=== PATIENT | male | born 1945 | race Caucasian/White ===

== ENCOUNTER 2018-08-26 20:40 | Inpatient (IN) | payer MEDICARE ==
--- NOTE | 2018-08-26 20:47 | ED ---
Altered Mental Status - HPI Summary HPI Summary: A 72 y/o M brought in by ambulance presents to ED for possible AMS per family onset approx 6-8 hours ago. Per EMS: Patient is living at rehab currently, and the family was present with patient at 1400 and felt he was altered and very lethargic. Patient was stable en route to [facility]. At bedside, patient states it s hard to pay attention and remember things. He says he hit his head mildly when he had therapy a few days ago. Denies recent falls. Associated sx: FLEMING, RLE weakness, L elbow pain. He has L-sided weakness s/p stroke in 2001. Patient denies dysuria, frequency, abd pain, SOB, CP. He is on home O2 only at night. - History Of Current Complaint Stated Complaint: AMS PER EMS Hx Obtained From: Patient, Family/Substance Abuse Therapist - son, EMS Onset/Duration: Still Present Timing: Constant, Lasting Hours Severity Initially: Mild Severity Currently: Mild Character: Lethargy Aggravating Factor(s): Unknown Associated Signs And Symptoms: Positive: Headache - Allergies/Home Medications Allergies/Adverse Reactions: Allergies Allergy/AdvReac Type Severity Reaction Status Date / Time simvastatin [From Zocor] Allergy Unknown Verified 08/26/18 21:31 Reaction Details tramadol Allergy Unknown Verified 08/26/18 21:31 Reaction Details Home Medications: Home Medications Baclofen TAB* [Lioresal TAB*] 40 mg PO QID 08/26/18 [History Confirmed 08/26/18 ] Clopidogrel Bisulfate [Plavix] 75 mg PO QAM 08/26/18 [History Confirmed 08/26/18 ] Duloxetine HCl [Cymbalta] 30 mg PO DAILY 08/26/18 [History Confirmed 08/26/18] Fluticasone NASAL SPRAY 50MCG* [Flonase NASAL SPRAY 50MCG*] 1 spray BOTH NARES DAILY 08/26/18 [History Confirmed 08/26/18] Gabapentin CAP(*) [Neurontin 400 mg CAP(*)] 1 tab PO TID 08/26/18 [History Confirmed 08/26/18] Gabapentin CAP(*) [Neurontin 400 mg CAP(*)] 4 tab PO BEDTIME 08/26/18 [History Confirmed 08/26/18] Glimepiride 4 mg PO QAM 08/26/18 [History Confirmed 08/26/18] Ketorolac 0.5% OPHTH (NF) 1 drop BOTH EYES TID 08/26/18 [History Confirmed 08/26] L. Acidophilus/L.bulgaricus [Lactobacillus Tablet] 2 each PO DAILY 08/26/18 [ History Confirmed 08/26/18] Levothyroxine Sodium 100 mcg PO QAM 08/26/18 [History Confirmed 08/26/18] Loperamide CAP* [Imodium CAP*] 2 mg PO Q4H PRN 08/26/18 [History Confirmed 08/26] Morphine TAB (NF) [Morphine 30 MG TAB (NF)] 30 mg PO Q12H PRN 08/26/18 [History Confirmed 08/26/18] Nitroglycerin 0.4 mg SL SEE INSTRUCTIONS PRN 08/26/18 [History Confirmed ] Rosuvastatin Calcium [Crestor] 5 mg PO QPM 08/26/18 [History Confirmed 08/26/18] Silver Sulfadiazine 1%* [SILVadine 1%*] 1 applic TOPICAL BEDTIME 08/26/18 [ History Confirmed 08/26/18] Warfarin Sodium [Coumadin] 4 mg PO DAILY 08/26/18 [History Confirmed 08/26/18] PMH/Surg Hx/FS Hx/Imm Hx Previously Healthy: No Musculoskeletal History: Reports: Hx Back Problems, Other Musculoskeletal History - 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 Neurological History: Reports: Hx Headaches, Other Neuro Impairments/Disorders - Stroke in 2001 - Social History Occupation: Retired Lives: At [facility] [employer] Review of Systems Negative: Chest Pain Negative: Shortness Of Breath Negative: Abdominal Pain Negative: dysuria, frequency Musculoskeletal: Other - pos: L elbow pain Positive: Headache, Weakness - RLE All Other Systems Reviewed And Are Negative: Yes Physical Exam - Summary Physical Exam Summary: Constitutional: Well-developed, Well-nourished, Alert. (-) Distressed Skin: Warm, Dry HENT: Normocephalic; Atraumatic Eyes: Conjunctiva normal Neck: Musculoskeletal ROM normal neck. (-) JVD, (-) Stridor, (-) Tracheal deviation Cardio: Rhythm regular, rate normal, Heart sounds normal; Intact distal pulses; The pedal pulses are 2+ and symmetric. Radial pulses are 2+ and symmetric. (-) Murmur Pulmonary/Chest wall: Effort normal. (-) Respiratory distress, (-) Wheezes, (-) Rales Abd: Soft, (-) tenderness, (-) Distension, (-) Guarding, (-) Rebound Musculoskeletal: Edematous Lymph: (-) Cervical adenopathy Neuro: Alert & Oriented to person and place not time. Psych: Mood and affect Normal Triage Information Reviewed: Yes Vital Signs Reviewed: Yes - [place] Neck Coma Scale Best Eye Response: 4 - Spontaneous Best Motor Response: 6 - Obeys Commands Best Verbal Response: 4 - Confused Coma Scale Total: 14 Diagnostics - Laboratory Result Diagrams: 08/26/18 21:11 08/26/18 21:11 Lab Statement: Any lab studies that have been ordered have been reviewed, and results considered in the medical decision making process. - CT Brain CT CT Interpretation Completed By: Radiologist Summary of CT Findings: IMPRESSION: No acute injury or hemorrhage or significant mass effect. ED provider has reviewed this report. C-Spine CT CT Interpretation Completed By: Radiologist Summary of CT Findings: IMPRESSION: 1. No acute findings. 2. Severe multilevel degenerative spondylosis, greatest at C3-C4 level with severe spinal stenosis and severe bilateral neural foraminal narrowing as well as ventral cord compression. Further evaluation with MRI of the cervical spine may be considered. ED provider has reviewed this report. - EKG 2102 Summary of EKG Findings: EKG at 2102 shows junctional rhythm at 72 bpm, prolonged QRS, nml QTC, RBBB. Overall RBBB and junctional rhythm. 2112 Cardiac Rate: Bradycardia - 33 bpm EKG Rhythm: Sinus Bradycardia Summary of EKG Findings: Sinus beverly at 33 bpm with 2nd degree AV block, RBBB, nml QRS, nml QTC. Significantly different from prior EKG on this date. Overall: RBBB EKG. Re-Evaluation - Re-Evaluation 1 Re-Evaluation Time: 21:00 Change: Unchanged Comment: Discussing patient with son who is now present at bedside. Son states patient fell yesterday during PT; hitting his head and L elbow. Patient was at baseline afterwards yesterday, but today was groggy and sleepy. 2 Re-Evaluation Time: 00:21 Change: Unchanged Comment: Discussing results with patient and family. , now present, is concerned about his C-spine as he has chronic c-spine problems. Altered Mental Statu Course/Dx - Course Course Of Treatment: Patient is a 72 y/o M presenting for possible AMS - lethargy per family onset approx 6-8 hours ago. Associated sx: FLEMING, RLE weakness , L elbow pain. He has L-sided weakness s/p stroke in 2001. Patient denies dysuria, frequency, abd pain, SOB, CP. He is on home O2 only at night. PE finds patient is diffusely edematous; alert & oriented to person and place but not time. Lab results show: INR: 2.43, Creatinine: 1.41, AST: 7, ALT: 6. UA results are unremarkable. Brain CT shows "No acute injury or hemorrhage or significant mass effect." C-Spine CT shows "1. No acute findings. 2. Severe multilevel degenerative spondylosis, greatest at C3-C4 level with severe spinal stenosis and severe bilateral neural foraminal narrowing as well as ventral cord compression. Further evaluation with MRI of the cervical spine may be considered.". Consulted with Dr. Lenz, hospitalist, who will admit patient. - Diagnoses Provider Diagnoses: Altered mental status, Right sided weakness - Provider Notifications Discussed Care Of Patient With: Hank Lenz - hospitalist Time Discussed With Above Provider: 03:16 Instructed by Provider To: Admit As Inpatient Discharge - Sign-Out/Discharge Documenting (check all that apply): Patient Departure - ADMIT Patient Received Moderate/Deep Sedation with Procedure: No - Discharge Plan Disposition: ADMITTED TO [facility] - Attestation Statements Document Initiated by Scribe: Yes Documenting Scribe: Miguel Barrios Provider For Whom Scribe is Documenting (Include Credential): Dr. Margy Borjas MD Scribe Attestation: I, Miguel Barrios, scribed for Dr. Margy Borjas MD on at 0641. Status of Scribe Document: Ready
[2018-08-26 21:17] LABS: ABS Basophils 0.1 10^3/ul (0-0.2); ABS Eosinophils 0.2 10^3/ul (0-0.6); ABS Lymphocytes 1.4 10^3/ul (1.0-4.8); ABS Monocytes 0.7 10^3/ul (0-0.8); ABS Neutrophils 7.4 10^3/ul (1.5-7.7); Eosinophil % 1.8 %; Hematocrit 46 % (42-52); Hemoglobin 14.8 g/dL (14.0-18.0); Lymphocyte % 14.2 %; Mean Corpuscular HGB Conc 32 g/dL (31-36); Mean Corpuscular Hemoglobin 28 pg (27-31); Mean Corpuscular Volume 86 fL (80-94); Mean Platelet Volume 7.2 fL (7.4-10.4); Platelet Count 216 10^3/uL (150-450); Red Blood Count 5.33 10^6 /uL (4.18-5.48); Red Cell Distribution Width 18 % (10-15); White Blood Count 9.8 10^3/uL (3.5-10.8)
[2018-08-26 21:25] LABS: INR 2.43 (0.82-1.09)
[2018-08-26 21:35] LABS: Albumin 3.8 g/dL (3.2-5.2); Albumin/Globulin Ratio 1.2 (1-3); BUN/Creatinine Ratio 15.6 (8-20); Calcium 8.7 mg/dL (8.6-10.3); EGFR African American 59.5 (>60); EGFR Non-African American 49.1 (>60); Globulin 3.2 g/dL (2-4); Potassium 4.4 mmol/L (3.5-5.0); Total Bilirubin 0.7 mg/dL (0.2-1.0)
[2018-08-26 23:25] LABS: Urine Appearance Clear; Urine Bilirubin Negative (Negative); Urine Blood Negative (Negative); Urine Color Yellow; Urine Glucose Negative (Negative); Urine Ketones Negative (Negative); Urine Nitrite Negative (Negative); Urine Protein Negative (Negative); Urine Specific Gravity 1.015 (1.010-1.030); Urine Urobilinogen Negative (Negative)
[2018-08-27] MEDS ORDERED: Nitroglycerin TAB 0.4 MG* 0.4 MG TAB SL PRN (03:47)
[2018-08-27] MEDS ORDERED: Morphine ORAL.SOLN 10 mg* 2 MG/ML UDC 5 ml PO PRN (03:47)
[2018-08-27] MEDS ORDERED: Loperamide CAP* 2 MG PO PRN (03:47)
[2018-08-27 08:56] LABS: INR 2.68 (0.82-1.09)
[2018-08-27] MEDS: Insulin LISPRO* 1 UNITS UNIT SUBCUT SCH ×4 (09:03→20:11)
[2018-08-27 09:47] LABS: TSH (Thyroid Stimulating Horm) 2.57 mcIU/mL (0.34-5.60)
[2018-08-27] MEDS: Clopidogrel TAB* 75 MG PO SCH (09:47)
[2018-08-27] MEDS: Baclofen TAB* 20 MG PO SCH ×4 (09:47→21:38)
[2018-08-27] MEDS: CMCS:Glimepiride (NF) 2 MG TAB PO SCH (09:47)
[2018-08-27] MEDS: Lactobacillus Acidophilus* 1 TAB PO SCH (09:47)
[2018-08-27] MEDS: DULoxetine DR CAP* 30 MG CAP.DR PO SCH (09:48)
[2018-08-27] MEDS: Gabapentin CAP(*) 400 MG PO SCH ×3 (09:48→21:38)
[2018-08-27] MEDS: CMCS:Ketorolac 0.5% OPHTH (NF) 0.5 % 5 ML BTL BOTH EYES SCH ×3 (09:49→21:38)
--- NOTE | 2018-08-27 11:13 | HP ---
CC: Dr. Vishnu Pollack at [facility] ADMISSION HISTORY AND PHYSICAL: DATE OF ADMISSION: 08/27/18 CHIEF COMPLAINT: Somnolence. HISTORY OF PRESENT ILLNESS: Mr. Can is a 72-year-old man with history of diabetes who was brought to the emergency room from [facility] today with complaint of increased somnolence. The patient could not given any history, but history was obtained by the ER doctor, from the patient's as well as from the senior care records. It sounds like the patient had the problem with the Juan lift transfer 2 days prior to admission where he was being moved from bed to chair with physical therapy and his head was bumped and he had a controlled descent to the floor without any immediate injury. He also over the last 2 days has had increasing somnolence where normally he is talkative and interactive and he has been increasingly sleeping all the time. It should be noted that the patient is chronically on CPAP when asleep and this has not been stopped. The patient's really was concerned that the patient' s right arm is moving less than previous. The patient has a left-sided hemiparesis that the patient attributes to an old stroke, but the attributes to spinal injuries. Records from the nursing speak of general muscle weakness and no specific laterality or causation. The patient denies any pain. He can answer some yes or no questions, but really is mostly giving nonsensical answers to questions. PAST MEDICAL HISTORY: Hypertension, chronic pain, obstructive sleep apnea on BiPAP, diastolic CHF, type 2 diabetes with peripheral neuropathy, major depressive disorder, hypothyroidism, atrial fibrillation, coronary artery disease, recurrent diarrhea. PAST SURGICAL HISTORY: Unknown. MEDICATIONS ON ADMISSION: 1. Baclofen 40 mg p.o. q.i.d. 2. Plavix 75 mg p.o. q.a.m. 3. Cymbalta 30 mg p.o. q. day. 4. Flonase nasal spray 1 spray both nostrils q. day. 5. Gabapentin 400 mg p.o. t.i.d. 6. Glimepiride 4 mg p.o. q.a.m. 7. Ketorolac ophthalmic drops 1 drop to both eyes daily. 8. Probiotic 2 tabs daily. 9. Levothyroxine 100 mcg p.o. q.a.m. 10. Loperamide 2 mg p.o. q.4 hours p.r.n. diarrhea. 11. Morphine sulfate SR 30 mg p.o. q.12 hours. 12. Nitroglycerin 0.4 mg sublingual q.5 minutes p.r.n. chest pain. 13. Crestor 5 mg p.o. q.p.m. 14. Silver sulfadiazine topically as needed. 15. Warfarin 4 mg p.o. q. day. ALLERGIES: SIMVASTATIN, TRAMADOL. SOCIAL HISTORY: He is . He was disabled, retired. Smoking history is unknown. FAMILY HISTORY: Not obtainable from this patient who is nearly obtunded. REVIEW OF SYSTEMS: Not obtainable from this patient. PHYSICAL EXAMINATION GENERAL: The patient is an obese man, lying in bed on CPAP. When the CPAP is taken off, the oropharynx is moist. No lesions. VITAL SIGNS: Temperature 36.7, pulse has ranged from 39 to 65, respirations are 11 to 19, blood pressures 128/69, O2 sat 92 to 95% on CPAP and drops to 89% off CPAP. HEENT: Normal. Extraocular muscles are intact. NECK: No JVD. No carotid bruit. No thyromegaly is noted. LUNGS: Diminished, clear bilaterally. HEART: Regular rate and rhythm, no murmurs appreciated. ABDOMEN: Obese, soft, nontender. Positive bowel sounds. No hepatosplenomegaly. EXTREMITIES: There is 1+ peripheral edema bilaterally. Dorsalis pedis pulses are 1+ bilaterally. NEUROLOGIC: There is no facial asymmetry, but the patient does not move left arm or left leg against gravity to command. When left leg is manipulated, he reports some pain. He appears flaccid on the left side. The right arm, he moved to command. I cannot assess strength because the patient is not cooperative, he would not move his right leg. Deep tendon reflexes absent throughout. DIAGNOSTIC STUDIES/LAB DATA: Sodium 136, potassium 4.4, chloride 101, bicarb 29, BUN 22, creatinine 1.41, glucose is 84, lactic acid 1.0. White count is 9.8 , hemoglobin 14.8, hematocrit 46%, platelets are 216. INR is 2.43. Blood gas shows pH 7.33, pCO2 of 58, pO2 of 81. Urinalysis is negative. Head CT shows atrophy. No old or new infarcts or bleed. CT of C-spine shows multilevel disc disease and foraminal narrowing. No clear cord compression. EKG shows atrial fibrillation. EKG shows regular rhythm with wide complex, right bundle-branch, left anterior fascicular block. No P-waves are discerned, but it looks regular. ASSESSMENT AND PLAN: A 72-year-old man presenting to ER with increased somnolence and possible weakness of the right arm. Arm weakness. The differential would include a stroke in the last 24 to 48 hours as well as cervical stenosis or foraminal issues that are worsening arm strength in the setting of recent mild fall. The patient will be admitted to observation and have MRI of the brain and the cervical spine, hopefully in the morning. It is not clear to me what we would be able to do other than physical therapy for the above mentioned injuries but this would help with prognosis and planning. Given the possibility of stroke, patient will be monitored on telemetry to assess for significant arrhythmias. The patient's somnolence has been partially worked up in the ER. There is no apparent urinary tract infection. The blood gas shows mild respiratory acidosis , which appears to be acute on chronic. He should be maintained on CPAP when asleep and that should help with his respiratory acidosis. He appears to have obesity hypoventilation syndrome and chronic hypercapnic respiratory failure. I will order TSH and ammonia to assess for other causes of somnolence. Medication side effects would be in the differential as well and we could try cutting back on his baclofen. For his type 2 diabetes, we will continue on glimepiride and give him sliding scale insulin as needed. For his atrial fibrillation, which appears paroxysmal, he will be continued on warfarin with INRs checked daily. DVT prophylaxis. He is on warfarin and should not need any further DVT prophylaxis. [id number]/[facility] #: [id number] [facility] HOSPITALPinky
[2018-08-27] MEDS ORDERED: Perflutren Lipid Microsphere* 3 ML VIAL ONE (11:56)
[2018-08-27] MEDS: Levothyroxine TAB* 100 MCG TAB PO SCH (12:21)
[2018-08-27] MEDS ORDERED: oxyCODONE TAB* 5 MG TAB PO ONE (13:30)
--- NOTE | 2018-08-27 13:33 | ECHO ---
*[facility]* [place] [address] Fax #: [phone] Patient: Luis Can : 1945 Study Date: 08/27/2018 Age: 72 Gender: M HR: 59 bpm Height: 72 in /182.9 cm Weight: 379.2 lb /172.4 kg BMI/BSA: 51.5 kg/m^2 2.8 m^2 HR: 59 bpm *Insole Tacker: * Krystin Johns [facility] *Referring Physician: * Wasihngton Randhawa *Reading Physician: * Rachel Garzon MD Indications: Abnormal EKG. History: Cerebrovascular accident. Risk factors: Morbidly obese. Conclusions Summary: 1. Procedure narrative: Image quality was suboptimal. 2. Left ventricle: Systolic function is mildly to moderately reduced. The estimated ejection fraction is 45-50%. Hypokinesis and dyskinesis of the septum. 3. Right ventricle: The cavity size is moderately dilated. Systolic function is moderately reduced. 4. Right atrium: The atrium is moderately to severely dilated. 5. Mitral valve: There is trace to mild regurgitation. 6. Aortic valve: Thickening, consistent with sclerosis. There is trace to mild regurgitation. 7. Tricuspid valve: There is moderate regurgitation. 8. Aorta: The ascending aorta internal dimension in the A-P direction, maximal systolic dimension is 4.0 cm. 9. Aortic root: The aortic root is moderately dilated. 10. Pulmonary arteries: The peak pressure during systole by Doppler is 39.0 mm Hg. 11. Compared with prior echocardiogram of October 2014 [facility], prior ejection fraction 50-55%, right ventricle hypokinesis has progressed and right ventricle dilatation has progressed.Valvular function is stable. No pulmonary artery pressure previousy reported. I don't have aorta measurements available to compare. Study data: Procedure: Transthoracic echocardiography was performed. Image quality was suboptimal. The study was technically limited due to poor acoustic window availability and body habitus. Intravenous Definity , 5 mlswas administered. Complete 2D, spectral Doppler, and color flow Doppler. Location: Bedside. Patient status: Inpatient. Patient room number: 437. Rhythm: Heart block. Findings Left ventricle: The cavity size is at the upper limits of normal. There is mild asymmetric hypertrophy of the septum. Systolic function is mildly to moderately reduced. The estimated ejection fraction is 45-50%. Mild diffuse hypokinesis. Regional wall motion abnormalities: Hypokinesis. Hypokinesis and dyskinesis of the septum. Left ventricular diastolic function parameters are indeterminate. Right ventricle: The cavity size is moderately dilated. Systolic function is moderately reduced. Systolic pressure is mildly to moderately increased. Ventricular septum: There is septal flattening of the interventricular septum consistent with RV volume or pressure overload. Left atrium: The atrium is mildly dilated. Right atrium: The atrium is moderately to severely dilated. Mitral valve: The leaflets are mildly thickened. There is no evidence of stenosis. There is trace to mild regurgitation. Aortic valve: The valve is trileaflet. The leaflets are mildly thickened. Thickening, consistent with sclerosis. There is no evidence of stenosis. There is trace to mild regurgitation. Tricuspid valve: The leaflets are normal thickness. There is no evidence of stenosis. There is moderate regurgitation. Pulmonic valve: The leaflets are normal thickness. There is no evidence of stenosis. There is trace regurgitation. Aorta: Aortic root: The aortic root is moderately dilated. Aortic arch: The aortic arch is appears normal. Pericardium: A prominent pericardial fat pad is present. There is no significant pericardial effusion. Pulmonary arteries: The main pulmonary artery is normal-sized. Systemic veins: Inferior vena cava: The vessel is dilated. The respirophasic diameter changes are blunted (< 50%). Measurements Left ventricle Value Ref Aortic valve Value Ref NYASIA, LAX 5.7 cm 4.2 - 5.8 Miguel diam, ED 2.7 cm ----- ESD, LAX (H) 4.9 cm 2.5 - 4.0 Peak v, S 1.47 m/sec ----- FS, LAX (L) 14 % 25 - 43 VTI, S 27.5 cm ----- PW, ED, LAX 1.0 cm 0.6 - 1.0 Mean grad, S 4.0 mm Hg ----- FS (L) 14 % 25 - 43 Peak grad, S 9.0 mm Hg ----- PW, ED 1.0 cm 0.6 - 1.0 LVOT/AV, VTI ratio 0.58 ----- E', lat miguel, TDI 13.7 cm/sec >=10.0 MELY, VTI 2.63 cm^2 --- -- E/e', lat miguel, 5 MELY, Vmax 2.43 cm^2 ----- TDI E', med miguel, TDI 7.6 cm/sec >=7.0 Mitral valve Value Ref E/e', med miguel, 8 Peak E 0.64 m/sec ----- TDI Peak A 0.42 m/sec ----- E', avg, TDI 10.7 cm/sec Decel time 257 ms ----- E/e', avg, TDI 6 <=14 Peak E/A ratio 1.5 --- -- LVOT Value Ref Pulmonic valve Value Ref Diam, S 2.40 cm Peak v, S 0.86 m/sec ----- Area 4.5 cm^2 Peak grad, S 3.0 mm Hg ----- Peak [place], S 0.79 m/sec VTI, S 16.0 cm Tricuspid valve Value Ref Mean grad, S 1 mm Hg TR peak v 2.6 m/sec <=2.8 SV 73 ml Peak RV-RA grad, S 27 mm Hg ----- SV/bsa 26 ml/m^2 Aortic root Value Ref Ventricular septum Value Ref Root diam 4.2 cm <4.7 IVS, ED (H) 1.3 cm 0.6 - 1.0 Ascending aorta Value Ref Right ventricle Value Ref AAo AP diam, S 4.0 cm ----- NYASIA, LAX 4.4 cm NYASIA minor ax, A4C (H) 5.5 cm 1.9 - 3.5 Aortic arch Value Ref mid Arch diam 2.7 cm ----- Pressure, S 42 mm Hg Decending aorta Value Ref Left atrium Value Ref Duncan peak [place] 0.51 m/sec ----- AP dim, ES (H) 4.40 cm 3.00 - 4.00 Pulmonary artery Value Ref ML dim, A4C 5.1 cm Pressure, S 39.0 mm Hg ----- SI dim, A4C 6.5 cm Vol/bsa, ES, 1-p 26 ml/m^2 12 - 37 Inferior vena cava Value Ref A4C Diam 2.8 cm ----- Vol/bsa, ES, A/L (H) 39 ml/m^2 16 - 34 Right atrium Value Ref SI dim, ES (H) 6.6 cm 3.4 - 5.3 ML dim, ES, A4C (H) 5.5 cm 2.6 - 4.4 SI dim, ES, A4C (H) 6.6 cm 3.4 - 5.3 Estimated RAP 15 mm Hg Legend: (L) and (H) shandra values outside specified reference range. Prepared and electronically signed by Rachel Garzon MD 08/27/2018 13:33
--- NOTE | 2018-08-27 13:45 | PN ---
Subjective Date of Service: 08/27/18 Interval History: Seen this AM. Confused, wanted to be transferred to [place] for "my heart" Seen again this afternoon and now mental status back to baseline per patient and /son who were present at bedside. Now appreciative of care and no longer requesting transfer. Notes back pain that is chronic but increased since his fall 2 d [employer]DER [employer] that is diffuse Denies CP, SOB, N/V, LH Objective Active Medications: Atorvastatin Calcium (Lipitor*) 10 mg PO QPM [facility]; Protocol Baclofen (Lioresal Tab*) 40 mg PO QID [facility] Last Admin: 08/27/18 09:47 Dose: 40 mg Clopidogrel Bisulfate (Plavix Tab*) 75 mg PO QAM [facility] Last Admin: 08/27/18 09:47 Dose: 75 mg Dextrose (D50w Syringe 50 Ml*) 12.5 gm IV PUSH .FOR FS < 60 - SS PRN PRN Reason: FS < 60 Duloxetine HCl (Cymbalta Cap*) 30 mg PO DAILY [facility] Last Admin: 08/27/18 09:48 Dose: 30 mg Gabapentin (Neurontin Cap(*)) 400 mg PO TID [facility] Last Admin: 08/27/18 09:48 Dose: 400 mg Glimepiride (Glimepiride (Nf)) 4 mg PO DAILY WITH MEAL [facility] Last Admin: 08/27/18 09:47 Dose: 4 mg Insulin Human Lispro (Humalog*) 0 units SUBCUT ACHS [facility]; Protocol Last Admin: 08/27/18 12:20 Dose: Not Given Ketorolac Tromethamine (Ketorolac 0.5% Ophth (Nf)) 1 drop BOTH EYES TID [facility] Last Admin: 08/27/18 09:49 Dose: 1 drop Lactobacillus Rhamnosus (Lactobacillus Acidophilus*) 2 tab PO DAILY [facility] Last Admin: 08/27/18 09:47 Dose: 2 tab Levothyroxine Sodium (Synthroid Tab*) 100 mcg PO QAM@0600 [facility] Last Admin: 08/27/18 12:21 Dose: Not Given Loperamide HCl (Imodium Cap*) 2 mg PO Q4H PRN PRN Reason: DIARRHEA Morphine Sulfate (Morphine Oral.Soln 10 Mg*) 30 mg PO Q12H PRN PRN Reason: PAIN Nitroglycerin (Nitroglycerin Tab 0.4 Mg*) 0.4 mg SL Q5M PRN PRN Reason: chest pain Silver Sulfadiazine (Silvadine 1%*) 1 applic TOPICAL BEDTIME [facility] Warfarin Sodium (Coumadin Tab(*)) 4 mg PO DAILY@1700 [facility]; Protocol Vital Signs - 8 hr 08/27/18 08/27/18 08/27/18 05:45 06:00 06:03 Temperature 98.4 F Pulse Rate 73 71 74 Respiratory 13 14 13 Rate Blood Pressure 134/76 134/76 (mmHg) O2 Sat by Pulse 94 93 94 Oximetry 08/27/18 08/27/18 08/27/18 06:15 06:30 06:32 Temperature 98.6 F 98.4 F Pulse Rate 74 74 68 Respiratory 13 15 20 Rate Blood Pressure 134/76 123/70 (mmHg) O2 Sat by Pulse 94 95 95 Oximetry 08/27/18 08/27/18 09:48 11:18 Temperature 98.1 F Pulse Rate 33 Respiratory 16 16 Rate Blood Pressure 104/41 (mmHg) O2 Sat by Pulse 95 Oximetry Oxygen Devices in Use Now: Nasal Cannula Appearance: obese, sitting up, NAD Eyes: No Scleral Icterus Ears/Nose/Mouth/Throat: NL Teeth, Lips, Gums, Clear Oropharnyx Neck: NL Appearance and Movements; NL JVP, Trachea Midline Respiratory: Symmetrical Chest Expansion and Respiratory Effort, Clear to Auscultation Cardiovascular: RRR Abdominal: NL Sounds; No Tenderness; No Distention, No Hepatosplenomegaly Extremities: - - 2+ edema in feet non pitting extending up to knees Neurological: Alert and Oriented x 3, - - lef6t sided weakness arm and leg (old ) 2-3/5, right UE 3/5 (new), CN 2-12 intact, R and L LE 1/5 Result Diagrams: 08/26/18 21:11 08/26/18 21:11 Microbiology and Other Data: Microbiology 08/27/18 04:22 Nasal Screen MRSA (PCR) - Final Nasal Mrsa Not Detected Assess/Plan/Problems-Billing Assessment: 72 yo M h/o chronic PEs, afib on coumadin, CAD/CABG, CVA, DM2, PETRA on BiPAP suffered controlled fall with PT at [place] 2 days [employer] with subsequent increased confusion and lethargy then right UE weakness found in hospital with newly identified mobitz I HB - Patient Problems (1) Heart block Comment: prasanna kendall I appreciate cardiology c/s check TTE maintain tele, wait for official c/s hold all AV yoanna blocking agents (none on outpatient or o/p cards med rec) Of note, fall at [place] was while working with PT and reportedly related to positioning not an episode of LH or LOC (2) Weakness Comment: new RUE weakness h/o stroke, concern for new CVA MRI brain pending pain medications to assist in ability to lie flat If new CVA with c/s neuro but unclear what additional changes can be made - on coumadin and plavix already (3) Altered mental status Comment: confirms that [place] told her pt received additional doses of morphine after fall on Saturday. After this increased lethargy. Suspect iotrogenic narcotic overdose Trial oxycodone now x [address] of morphine - will d/c morphine if effective, otherwise cautious and monitored trial of morphine PO Mental status cleared with time and CPAP (4) Atrial fibrillation Comment: coumadin (5) Chronic pulmonary embolism Comment: coumadin as above (6) PETRA (obstructive sleep apnea) Comment: CPAP (7) DVT prophylaxis Comment: coumadin
[2018-08-27] MEDS ORDERED: Morphine INJ* 2 MG/ML 1 ML SYRINGE (TWO MG - NEW SYRINGE VERSION) IV PRN (15:30)
[2018-08-27] MEDS ORDERED: Warfarin TAB(*) 4 MG PO SCH (17:00)
[2018-08-27] MEDS: Atorvastatin* 10 MG TAB PO SCH (19:01)
[2018-08-27] MEDS: Silver Sulfadiazine 1%* 20 GM TOPICAL SCH (21:37)
--- NOTE | 2018-08-28 02:11 | CONS ---
CC: Dr. Tera Quintero, conche loader and unloader at [facility]; Physician at [facility] in [place], [place] (Dr. Vishnu Pollack); hospitalist. * CARDIOLOGY CONSULTATION: DATE OF CONSULT: 08/27/18 REASON FOR CONSULT: Bradycardia. HISTORY OF PRESENT ILLNESS: Mr. Can was examined in the presence of his . The patient was in his usual state of health until a few days ago. He is a long term resident for several years due to left-sided weakness after a fall. He slid out of his wheelchair about 3 days ago. Details on the history are unclear from the patient, but based on admission note the incident occurred while being transferred using a Juan lift. After this incident, the patient has been having increasing somnolence and right - sided upper extremity weakness. The patient's lives in [place] but talks to her on FaceTime and states she was talking to him and he was slurring his speech and she was worried about a stroke and wanted him to come to our facility. In the emergency room, he was unable to give any history about the event itself. The patient states he has been unable to feed himself with the right hand as he was able to do prior to this event. In the emergency room and on the floor on the monitor, the patient had a second - degree heart block, type I with a long first-degree AV block, left anterior fascicular block, and right bundle branch block and were concerned that bradycardic events could be contributing to his current presentation. The patient denies dizziness. He is extremely vague as about what happened with the events with the Juan lift. PAST MEDICAL HISTORY: The patient has a past medical history of: 1. Coronary artery disease, remote bypass. 2. History of accelerated junctional rhythm. 3. History of first-degree heart block and a history of second-degree heart block, type 1. 4. Pulmonary emboli, on chronic anticoagulation. 5. Dyslipidemia. 6. Coagulopathy. 7. Congestive heart failure. 8. Morbid obesity. 9. Type 2 diabetes. 10. Hypertension. 11. Sleep apnea. 12. Hypothyroid disease. 13. Depression. 14. Cervical stenosis. 15. Paroxysmal AFib. 16. Recurrent diarrhea. 17. History of lymphedema. OUTPATIENT MEDICATIONS: Include: 1. Baclofen 40 mg q.i.d. 2. Plavix 75 mg a day. 3. Cymbalta 30 mg a day. 4. Flonase. 5. Neurontin 400 mg t.i.d. 6. Glimepiride 4 mg a day. 7. Ketorolac ophthalmic drops 1 drop daily. 8. Probiotic. 9. Levothyroxine 100 mcg a day. 10. Loperamide p.r.n. 12. Morphine sulfate SR 30 mg q.12 hours. 13. Nitroglycerin p.r.n. 14. Crestor 5 mg a day. 15. Sulfasalazine topically. 16. Coumadin 4 mg a day. ALLERGIES: Include SIMVASTATIN, TRAMADOL, CODEINE PHOSPHATE. FAMILY HISTORY: Not obtained. Positive for cancer from his father. Positive for coronary artery disease in brothers. No coronary history with the mother. SOCIAL HISTORY: The patient is with a supportive , 2 sons, disabled. He smoked in the past. REVIEW OF SYSTEMS: The patient denies chest pain, pressure heaviness, any new shortness of breath. No recent fevers, chills, sweats, change in bowel or bladder habits. He denies being constipated. No recent coughing. All other 11 -point review of systems was negative. PHYSICAL EXAM: On exam, the patient is 6 feet, weighs 180 pounds, with BMI of 51.5. Vitals: Blood pressure 138/57, respiratory rate is 20, and oxygen saturations is 94% on room air, heart rate ranging 25 to 70 beats a minute, depending on degree of heart block. He is afebrile. General Appearance: Very obese gentleman, lying in bed at 60 degrees. The nurse in front of him and his feeding him. Psychologically, pleasant and cooperative, awake, alert, oriented to person and place. I did not check for time. Did not move right upper extremity and full neurological exam not performed. Skin: Warm and dry without appreciable cyanosis or rashes. Did not fully examine. HEENT: Mucous membrane moist. Neck: Very thick without appreciable increase in JVP. No carotid bruits heard. Breath sounds unable to listen to completely posteriorly but laterally and anteriorly no appreciable wheezes, rales, or rhonchi. Coronary, also obesity. S1, S2, regularly irregular without murmurs or rubs. Abdomen: Very overweight, active bowel sounds, soft, and nontender. Lower extremities show thick and chronic edema with mild pitting component. DIAGNOSTIC STUDIES/LAB DATA: A 12 lead ECG several done here, one was interpreted as a junctional rhythm, but I think is in fact sinus rhythm with P waves buried in the T and a long first-degree AV block with one-to-one conduction, right bundle branch block, left anterior fascicular block, and biphasic Ts, V3, V4, and V5. Other EKGs and rhythm strips confirm his long first-degree AV block with intermittent second-degree heart block type 1, and intermittent 2:1 heart block. When compared with EKGs from [facility] 07/23/17, there is no appreciable change. Rhythm strips have however shown rare episodes of 2 dropped beats suggestive of Infra-Hisian block. Echocardiogram done today showed some septal dyssynchrony and hypokinesis with an ejection fraction of 45% to 50%. The right ventricle was moderately dilated and moderately hypokinetic. The right atrium is severely dilated with moderate tricuspid insufficiency and PA pressure estimated at 39 mmHg. Aorta was mild-to- moderately dilated at 4 cm (difficult study due to body habitus). White count 9.8, hematocrit 46, platelets 216. INR 2.43 on 08/26 and 2.68 today. ABG showed pH of 7.33, pCO2 of 58. Sodium 136, potassium 4.4, chloride 101, bicarb 29, BUN 22, creatinine 1.4, glucose 84. Normal transaminases. Troponin 0.00. TSH 2.57. Urinalysis unremarkable. No evidence of infection. PH 1.015. Brain CT was negative. Cervical spine CT from 08/27/18 showed severe multilevel degenerative spondylolisthesis, greatest at C3-4 level with severe spinal stenosis and severe bilateral neuroforaminal narrowing as well as ventral cord compression. IMPRESSION: In summary, Luis Can is a 72-year-old gentleman with distant bypass surgery, history of a first-degree AV block and second-degree heart block type 1, documented in 2018, who is a long term resident due to left- sided weakness post fall. The patient now presents after a Juan lift accident with right-sided weakness, lethargy, somnolence and concern on the 's part about stroke. With respect to the patient's somnolence, in reviewing the MAR from the long term, the patient had not been on morphine from 08/02/18 through 08/18/18, but starting 08/19/18, he was receiving morphine twice a day until the . I think it is likely that the morphine led to depressed mentation and increased CO2 retention, but there is an additional extensive differential in this patient. Regarding the patient's bradycardia, the patient is clearly at risk for higher- degree heart block than we are seeing here and it possible that his longstanding trifascicular block has progressed to the point of being symptomatic. I don't think the bradycardia is related to a fall/mishap with a Juan lift. I don't have clear evidence it contributed to his mentation changes and the ABG suggests CO2 narcosis and his mentation improved here w/in a few hours in the setting of frequent 2:1 block. The one strip showing 2 dropped beats gives the patient indication for a dual chamber pacemaker. I am not suspicious that the symptomatic bradycardia is what brought the patient in as above. If a pacemaker is implanted, he will need ventricular pacing 100% of the time due to his very long first-degree AV block. This brings the issue up whether we should RV pace. I think we should try to avoid apical pacing, even septal pacing will not guarantee that his ejection fraction will not drip with a 100% V -pacing. There is a relative indication for a Bi-V device, but not absolute as his ejection fraction is only mildly decreased. Other issue is the evidence of RV dysfunction, probably cor pulmonale related to history of PEs, pulmonary hypertension, and obstructive sleep apnea. This will put the patient at risk for right-sided volume overload and hypotension if dehydrated. For now management will include supportive care of left heart failure and pulmonary issues. For now, we will hold his Coumadin when INR drops below 2. We can bridge him with Lovenox or unfractionated heparin drip. We will coordinate with his regular conche loader and unloader, Dr. Quintero regarding his preference for approach on pacemaker. We will need anesthesia assistance to safely implant a pacemaker in this [place] gentleman. For the patient's spinal stenosis, as per hospitalist this could be the contributing or the sole etiology of new right-sided weakness in addition to his left-sided weakness but MRI is pending (to be done tonight). Further recommendations will be made pending coordination with Dr. Quintero and his response to ongoing medical management. The patient is overall a very risk patient due to multiple health problems/ comorbidities. ADDENDUM: I REVIEWED THE ABOVE ISSUES WITH THE PATIENT'S [facility] PHARMAC[employer] TECHNICIAN CURT QUINTERO. LONGSTANDING LONG 1ST DEGREE AVB AND [place]. NO ACUTE RHYTHM INTERVENTION RECOMMENDED, HE WILL SEE IN F/U, POSSIBLE IMPLANTED EM OR PACER NON URGENTLY. LS. [id number]/CPS #: [id number] YANET
[2018-08-28] MEDS: Levothyroxine TAB* 100 MCG TAB PO SCH (05:37)
[2018-08-28 05:46] LABS: Urine Appearance Cloudy; Urine Bacteria Absent (Absent); Urine Bilirubin Negative (Negative); Urine Blood 2+ (Negative); Urine Color Yellow; Urine Glucose Negative (Negative); Urine Ketones Negative (Negative); Urine Nitrite Negative (Negative); Urine Protein 1+(30 mg/dL) (Negative); Urine Red Blood Cell 2+(6-10/hpf) (Absent); Urine Specific Gravity 1.014 (1.010-1.030); Urine Urobilinogen Positive (Negative); Urine White Blood Cell 3+(>20/hpf) (Absent)
[2018-08-28 06:18] LABS: INR 2.74 (0.82-1.09)
[2018-08-28] MEDS: Insulin LISPRO* 1 UNITS UNIT SUBCUT SCH ×3 (08:06→16:59)
[2018-08-28] MEDS: Baclofen TAB* 20 MG PO SCH ×4 (08:10→21:54)
[2018-08-28] MEDS: DULoxetine DR CAP* 30 MG CAP.DR PO SCH (08:10)
[2018-08-28] MEDS: Gabapentin CAP(*) 400 MG PO SCH ×3 (08:10→21:53)
[2018-08-28] MEDS: Lactobacillus Acidophilus* 1 TAB PO SCH (08:10)
[2018-08-28] MEDS: Clopidogrel TAB* 75 MG PO SCH (08:12)
[2018-08-28] MEDS: oxyCODONE TAB* 5 MG TAB PO PRN ×2 (08:12→23:43)
[2018-08-28] MEDS: CMCS:Ketorolac 0.5% OPHTH (NF) 0.5 % 5 ML BTL BOTH EYES SCH ×3 (08:16→21:52)
[2018-08-28] MEDS: CMCS:Glimepiride (NF) 2 MG TAB PO SCH (08:20)
[2018-08-28] MEDS: Dextrose 50% Syringe 50 ML* 25 GM/50 ML SYRINGE IV PUSH PRN ×2 (12:02→15:30)
[2018-08-28] MEDS ORDERED: NS 0.9% 1000 ML** 1,000 ML IV ONE ×2 (15:30→18:28)
[2018-08-28] MEDS ORDERED: D10W 1000 ML BAG* 1,000 ML IV SCH ×3 (16:00→18:19)
[2018-08-28] MEDS ORDERED: Dextrose 50% Syringe 50 ML* 25 GM/50 ML SYRINGE IV PUSH PRN (16:14)
--- NOTE | 2018-08-28 16:57 | PN ---
Subjective Date of Service: 08/28/18 Interval History: Low blood sugar this AM and again this afternoon Back pain better today (resolved) Increased right arm swelling noted by Right arm strength improved on self report Discussed with MRI - patient too wide to fit in scanner and did not get MRIs yesterday Objective Active Medications: Atorvastatin Calcium (Lipitor*) 10 mg PO QPM [facility]; Protocol Last Admin: 08/27/18 19:01 Dose: 10 mg Baclofen (Lioresal Tab*) 40 mg PO QID [facility] Last Admin: 08/28/18 14:14 Dose: 40 mg Clopidogrel Bisulfate (Plavix Tab*) 75 mg PO QAM [facility] Last Admin: 08/28/18 08:12 Dose: 75 mg Dextrose (D50w Syringe 50 Ml*) 25 gm IV PUSH ONCE PRN PRN Reason: FS < 60 Last Admin: 08/28/18 16:19 Dose: 25 gm Duloxetine HCl (Cymbalta Cap*) 30 mg PO DAILY [facility] Last Admin: 08/28/18 08:10 Dose: 30 mg Gabapentin (Neurontin Cap(*)) 400 mg PO TID [facility] Last Admin: 08/28/18 14:14 Dose: 400 mg Dextrose (D10w 1000 Ml Bag*) 1,000 mls @ 50 mls/hr IV PER RATE [facility] Insulin Human Lispro (Humalog*) 0 units SUBCUT ACHS [facility]; Protocol Last Admin: 08/28/18 14:06 Dose: Not Given Ketorolac Tromethamine (Ketorolac 0.5% Ophth (Nf)) 1 drop BOTH EYES TID [facility] Last Admin: 08/28/18 14:13 Dose: 1 drop Lactobacillus Rhamnosus (Lactobacillus Acidophilus*) 2 tab PO DAILY [facility] Last Admin: 08/28/18 08:10 Dose: 2 tab Levothyroxine Sodium (Synthroid Tab*) 100 mcg PO QAM@0600 [facility] Last Admin: 08/28/18 05:37 Dose: 100 mcg Loperamide HCl (Imodium Cap*) 2 mg PO Q4H PRN PRN Reason: DIARRHEA Nitroglycerin (Nitroglycerin Tab 0.4 Mg*) 0.4 mg SL Q5M PRN PRN Reason: chest pain Oxycodone HCl (Roxycodone Tab*) 10 mg PO Q6H PRN PRN Reason: PAIN Last Admin: 08/28/18 08:12 Dose: 10 mg Silver Sulfadiazine (Silvadine 1%*) 1 applic TOPICAL BEDTIME [facility] Last Admin: 08/27/18 21:37 Dose: 1 applic Vital Signs - 8 hr 08/28/18 08/28/18 08/28/18 10:42 14:14 15:36 Temperature 98.3 F Pulse Rate 66 Respiratory 16 18 18 Rate Blood Pressure 87/58 (mmHg) O2 Sat by Pulse 96 Oximetry 08/28/18 16:35 Temperature Pulse Rate Respiratory Rate Blood Pressure 96/58 (mmHg) O2 Sat by Pulse Oximetry Oxygen Devices in Use Now: Nasal Cannula Appearance: obese, NAD Eyes: No Scleral Icterus, PERRLA Ears/Nose/Mouth/Throat: NL Teeth, Lips, Gums, Clear Oropharnyx Neck: NL Appearance and Movements; NL JVP, Trachea Midline Respiratory: Symmetrical Chest Expansion and Respiratory Effort, Clear to Auscultation Cardiovascular: NL Sounds; No Murmurs; No JVD, RRR, - - +ectopy Abdominal: NL Sounds; No Tenderness; No Distention, No Hepatosplenomegaly Lymphatic: No Cervical Adenopathy Extremities: - - 2+ LE edema, RUE 2+ edema Neurological: Alert and Oriented x 3, - - RUE 4/5, b/l LE 1/5, CN 2-12 intact, sensation intact upper, diminshed LE Result Diagrams: 08/26/18 21:11 08/26/18 21:11 Microbiology and Other Data: Microbiology 08/27/18 04:22 Nasal Screen MRSA (PCR) - Final Nasal Mrsa Not Detected Assess/Plan/Problems-Billing Assessment: 72 yo M h/o chronic PEs, afib on coumadin, CAD/CABG, CVA, DM2, PETRA on BiPAP suffered controlled fall with PT at [facility] 2 days [employer] with subsequent increased confusion and lethargy then right UE weakness found in hospital with newly identified mobitz I HB - Patient Problems (1) Hypoglycemia Comment: in setting of decreased appetite stop glimepiride D50 this afternoon D10 at 50 cc/hr and FSG q2h until stable (2) Heart block Comment: intermittent mobitz I appreciate cardiology c/s - decision regarding best type of PPM in progress TTE complete maintain tele hold all AV yoanna blocking agents (none on outpatient or o/p cards med rec) -Of note, fall at [place] was while working with PT and reportedly related to positioning not an episode of LH or LOC -Holding coumadin, start heparin when INR <2.0 (3) Weakness Comment: new RUE weakness h/o stroke, concern for new CVA or cord compression based on CT c-spine and no other deficit on exam -however, reports slurred speech on phone prior to arrival and strength in RUE is improving which may be less c/w worsening cord compression neuro surgery consulted - decision re: CT myelogram pending, may need to hold plavix, will need to hold coumadin -if surgery is pursued will need to coordinate with timing of PPM (4) Altered mental status Comment: confirms that [place] told her pt received additional doses of morphine after fall on Saturday. After this increased lethargy. Suspect iotrogenic narcotic overdose Mental status cleared with time and CPAP (5) Atrial fibrillation Comment: coumadin holding and watching INR - start heparin when <2 (6) Chronic pulmonary embolism Comment: coumadin as above (7) PETRA (obstructive sleep apnea) Comment: CPAP (8) DVT prophylaxis Comment: coumadin
[2018-08-28] MEDS: Atorvastatin* 10 MG TAB PO SCH (17:59)
[2018-08-28] MEDS ORDERED: cefTRIAXone(*) 1 GM in NS 0.9% 50 ML* 50 ML IVPB ONE (18:20)
[2018-08-28] MEDS ORDERED: Dextrose 50% Syringe 50 ML* 25 GM/50 ML SYRINGE ONE (18:23)
--- NOTE | 2018-08-28 18:29 | PN ---
Progress Note - Progress Note Date of Service: 08/28/18 Note: Patient remained hypoglycemic despite D10 at 50 cc/hr, dextrose 50% and a brownie Will transfer to ICU for Q1hr FSG Increase D10 to 75cc/hr D50% now x 1 Ceftriaxone x 1 for possible UTI Another liter NS for lower BP
[2018-08-28] MEDS: Silver Sulfadiazine 1%* 20 GM TOPICAL SCH (21:51)
[2018-08-28] MEDS ORDERED: Dextrose 50% Syringe 50 ML* 25 GM/50 ML SYRINGE IV PUSH ONE (22:20)
[2018-08-29] MEDS: Dextrose 50% Syringe 50 ML* 25 GM/50 ML SYRINGE IV PUSH PRN ×2 (00:09→02:18)
--- NOTE | 2018-08-29 01:09 | CONS ---
NEUROLOGY CONSULTATION NOTE: DATE OF CONSULT: 08/28/18 CONSULTING PROVIDER: Dr. Washington Randhawa. REASON FOR CONSULT: Right-sided weakness and intermittent somnolence. HISTORY OF PRESENT ILLNESS: Mr. Can is a 72-year-old man with history of type 2 diabetes mellitus, paraparesis due to degenerative disk disease and baseline plegia on the left side due to cervical cord compression. The patient presented from [facility] with complaint of increased somnolence. According to Mrs. Can, who was at bedside, the patient slid out of a wheelchair while doing PT on Saturday. There was no head injury. He did fall. Saturday night, he was slurring his words as if he was having stroke. Saturday morning, the patient woke up and was complaining of right arm weakness. The patient continues to report right arm numbness and weakness. He denied any headaches. The patient is chronically on CPAP when asleep. The patient has been bedbound for the past 3 years. He was evaluated for cervical and lumbar spine surgery in 2011, but deemed not a candidate due to his weight. Neurology was consulted to evaluate for right arm weakness. The patient received an extra dose of morphine at night on Saturday evening. PAST MEDICAL HISTORY: Major depressive disorder; hypothyroidism; atrial fibrillation, on warfarin therapy; hypertension; chronic neck and low back pain ; obstructive sleep apnea, on CPAP; diabetes mellitus, type 2 with peripheral neuropathy; paraplegia due to cervical and lumbar spine disease; baseline left upper extremity weakness, the patient had a fall in 2011 and that is when his weakness began. MEDICATIONS: 1. Gabapentin 400 mg t.i.d. 2. Baclofen 40 mg p.o. 4 times a day. 3. Duloxetine 30 mg p.o. daily. 4. Morphine 30 mg p.o. every 12 hours as needed. 5. Loperamide 2 mg p.o. every 4 hours as needed. 6. Warfarin 4 mg p.o. daily. 7. Levothyroxine 100 mcg p.o. q.a.m. 8. Glimepiride 4 mg p.o. in the morning. 9. Rosuvastatin 5 mg p.o. at night. 10. Clopidogrel 75 mg p.o. in the morning. 11. Gabapentin 4 tablets p.o. at bedtime. ALLERGIES: SIMVASTATIN and TRAMADOL. FAMILY HISTORY: There is positive family history for stroke. SOCIAL HISTORY: The patient is . He has a son. He is retired. He denied any tobacco use. REVIEW OF SYSTEMS: I was able to obtain a minimal review of system and he denied any headaches or visual disturbance. The patient does note slurred speech, which is new. Otherwise, patient was unable to stay awake to provide a review of system. PHYSICAL EXAM: Vitals: Temperature 98.3, pulse of 66, respiratory rate of 18, oxygen saturation of 96 on 4 L, blood pressure of 99/54. General: The patient is a chronically ill, morbidly-obese man, in no distress. Head: Atraumatic, normocephalic. Eyes: Conjunctivae/corneas are clear. Neck: There is tenderness to palpation around the paraspinal region bilaterally. Unable to perform a [place] exam as the patient does not cooperate. Lungs: Diminished breath sounds bilaterally. Cardiovascular: Irregular rhythm and rate. Extremities: No hammertoes or high arches. He does have flat feet. Skin: No skin lesions or lacerations. Psych: Affect is flat and depressed mood. Neurological Examination: Mental status: Awake, alert, and oriented to person, place, but not time. He is able to recognize his spouse. His speech is hesitant with mild dysarthria. There is no language barrier. The patient does have psychomotor slowing. Cranial Nerves: Normal to confrontation testing bilaterally. Pupils are mid range and reactive to light. Normal concentric response. Sensation is reduced on the right side of the face. There is slight facial droop on the right side. He is able to hear throughout the history process. Symmetrical palatal elevation. Tongue is symmetrical and midline. Motor Examination: The patient is quadriparetic with 0/5 movements of the lower extremity bilaterally. 1-2/5 in the left upper extremity and 3-3+/5 on the right upper extremity. The patient was able to gives thumbs up on the right. He was able to show 2 fingers on command. Reflexes, trace throughout the upper extremity, zero on the lower extremities. Mute plantar responses bilaterally. Sensation is reduced to light touch, temperature, and pinprick, right arm and right leg. Absent vibration at the toes. Impaired proprioception at the toes. Coordination: Unable to obtain due to patient's drowsy state. Gait: Unable to assess as the patient is bedbound. Unable to obtain NIH stroke scale due to patient's lethargy as well as baseline paraparesis. DIAGNOSTIC STUDIES/LAB DATA: WBC 9.8, hemoglobin of 14, hematocrit of 46, platelet count of 216. Sodium 136, potassium 4.4, chloride 101, BUN 22, creatinine 1.41, glucose of 84, B12 is 323, TSH is 2.57. This was from . Urinalysis completed 08/28/18 showed negative nitrate, 3+ leukocyte esterase, 3+ WBC, absent bacteria. Blood glucose was 39. Brain CT completed on 08/26/18, showed no evidence of acute intracranial hemorrhage or hypodensity to suggest stroke. Cervical spine CT was completed on 08/27/18, was personally reviewed. He has severe multilevel degenerative disk disease. He has got C3-C4 level severe spinal stenosis and severe bilateral neural foraminal narrowing as well as ventral cord compression. Further MRI study was recommended. ASSESSMENT AND RECOMMENDATIONS: Mr. Luis Can is a 72-year-old with severe cervical and lumbosacral spine disease, who is nearly quadriparetic at this point, who has been bedbound for the past 3 years, who presents with worsening of right upper extremity weakness, confusion, disorientation, and slurred speech. Neurology was contacted to evaluate for possible stroke or the cervical spine disease contributing to the patient's right upper extremity weakness. On physical examination, the patient does have evidence of subtle right facial droop and according to his , this is new. Although I suspect that most of his weakness is related to the cervical spine spondylosis with myelopathy, ruling out a small lacunar stroke involving the left hemisphere is warranted. However, the treatment will not change given that patient is on Coumadin and antiplatelet therapy. The focus here should be to assess the patient's spine disease, in which case, he may not be a surgical candidate as he has been assessed for this in the past. Other differential diagnosis that may be contributing to his disorientation and somnolence include episodes of hypoglycemia, hypotension, urinary tract infection, acute toxic encephalopathy given that he is on high dose of baclofen and had recently increase his narcotic therapy, and hypotension. We recommend aggressive medical treatment for the latter diagnosis. I also recommended reducing the baclofen, which I will do to 40 mg t.i.d. Please consult Neurosurgery for neurosurgical evaluation of severe cervical spondylosis. Please place a cervical soft collar to be worn at all times. Consult PT and OT for therapy. I will continue to follow. Please order a CT head without contrast to evaluate for any areas of hypoattenuation that may suggest a new stroke. I doubt this is the case. [id number]/CPS #: [id number] MTDD
[2018-08-29] MEDS ORDERED: Dextrose 50% Syringe 50 ML* 25 GM/50 ML SYRINGE ONE (02:15)
[2018-08-29] MEDS: D10W 1000 ML BAG* 1,000 ML IV SCH ×2 (02:20→04:39)
--- NOTE | 2018-08-29 05:52 | CONSULT ---
Consult Consult: Subjective: 72 y/o right hand dominant male with PMH of Morbid obesity CAD, CVA, PE, left side hemiperesis ptw with head and neck pain s/p unwitnessed Mechanical fall at [facility]. His and son or at bedside and reports patient fell out of wheel chair and possible hit his head 4 days ago. After fall patient experienced confusion, and disruption of memory, and subjective right side weakness of right UPE and LE. Prior to fall reports patient had left side paralysis and was unable to walk in 3-4 years and was wheel chair dependent. Prior to fallhis right UPE was funtional and there was limited use of right LE. After fall he began having trouble using right UPE, and unable to perform perform routine task. Patient also complains of acute head and neck pain, has chronic back pain that is unchanged. PMH: CAD PE CVA, DM Morbid Obeisty Medications: See Chart Surgical History CABG Objective General: Morbid Obese male laying in bed elevated with CPAP machine, NAD ENT: Possible left eye infection has noticable discharge from left eye Neuro: GCS 15, A&O x 3, José Miguel full ROM of Neck, has pain with flexion/extension. right UPE motor strength 4/5, remaining extremity motor strength 0/5, decrease sensation on left side with light touch. CT scan of head unremarkable CT scan of neck: moderate to severe degenerative changes with multi level central canal stenosis. Assessment: 72 y/o male with c/o acute head and neck pain s/p mechanical fall x 4 days, also complains of subjective right side weakness,confusion, with decrease sensation on left side. CT scan of head within normal limits, has moderate to severe degenerative changes of cervical spine. Plan: Recommend placing him in [place] J collar, will order X rays of the thoracic and lumbar spine to evaluate for acute injury, if no acute injury seen, will have patient sit up and get flexion and extension views of cervical spine. Also recommend MRI of brain and cervical spine to rule our stroke and acute injury to C spine. Due to patient size will possible need a open MRI that can accommodate him. If unable to find a facility, will consider CT myelogram, will need to consult medicine since patient will need to stop blood thinner to complete study.
--- NOTE | 2018-08-29 05:58 | PN ---
Subjective Date of Service: 08/29/18 Interval History: Moved to ICU yesterday evening for hypoglycemia D10 titrated up to 125cc/hr overnight and BS now stable BiPAP facemasked noted to have bad seal overnight This AM more confused than yesterday - "you guys are tricky" and "Where is the pipe I am delivering" repeating this AM MRI order noted by neurosurgery but as per note he does not fit in scanner Objective Active Medications: Atorvastatin Calcium (Lipitor*) 10 mg PO QPM [facility]; Protocol Last Admin: 08/28/18 17:59 Dose: 10 mg Baclofen (Lioresal Tab*) 40 mg PO QID [facility] Last Admin: 08/28/18 21:54 Dose: 40 mg Clopidogrel Bisulfate (Plavix Tab*) 75 mg PO QAM [facility] Last Admin: 08/28/18 08:12 Dose: 75 mg Dextrose (D50w Syringe 50 Ml*) 25 gm IV PUSH ONCE PRN PRN Reason: FS < 60 Last Admin: 08/29/18 02:18 Dose: 25 gm Duloxetine HCl (Cymbalta Cap*) 30 mg PO DAILY [facility] Last Admin: 08/28/18 08:10 Dose: 30 mg Gabapentin (Neurontin Cap(*)) 400 mg PO TID [facility] Last Admin: 08/28/18 21:53 Dose: 400 mg Dextrose (D10w 1000 Ml Bag*) 1,000 mls @ 125 mls/hr IV PER RATE [facility] Last Admin: 08/29/18 04:39 Dose: 125 mls/hr Ketorolac Tromethamine (Ketorolac 0.5% Ophth (Nf)) 1 drop BOTH EYES TID [facility] Last Admin: 08/28/18 21:52 Dose: 1 drop Lactobacillus Rhamnosus (Lactobacillus Acidophilus*) 2 tab PO DAILY [facility] Last Admin: 08/28/18 08:10 Dose: 2 tab Levothyroxine Sodium (Synthroid Tab*) 100 mcg PO QAM@0600 [facility] Last Admin: 08/28/18 05:37 Dose: 100 mcg Loperamide HCl (Imodium Cap*) 2 mg PO Q4H PRN PRN Reason: DIARRHEA Nitroglycerin (Nitroglycerin Tab 0.4 Mg*) 0.4 mg SL Q5M PRN PRN Reason: chest pain Oxycodone HCl (Roxycodone Tab*) 10 mg PO Q6H PRN PRN Reason: PAIN Last Admin: 08/28/18 23:43 Dose: 10 mg Silver Sulfadiazine (Silvadine 1%*) 1 applic TOPICAL BEDTIME [facility] Last Admin: 08/28/18 21:51 Dose: 1 applic Vital Signs - 8 hr 08/28/18 08/28/18 08/28/18 21:53 22:00 22:15 Temperature Pulse Rate 64 55 Respiratory 19 17 17 Rate Blood Pressure 149/64 (mmHg) O2 Sat by Pulse 89 96 Oximetry 08/28/18 08/28/18 08/28/18 22:16 22:30 22:31 Temperature Pulse Rate 60 52 60 Respiratory 18 16 15 Rate Blood Pressure 144/78 151/55 (mmHg) O2 Sat by Pulse 96 98 96 Oximetry 08/28/18 08/28/18 08/28/18 22:45 22:46 23:00 Temperature Pulse Rate 57 57 49 Respiratory 15 16 16 Rate Blood Pressure 118/62 127/62 (mmHg) O2 Sat by Pulse 97 96 98 Oximetry 08/28/18 08/28/18 08/28/18 23:10 23:15 23:30 Temperature 98.1 F Pulse Rate 52 45 Respiratory 17 15 Rate Blood Pressure (mmHg) O2 Sat by Pulse 95 94 Oximetry 08/28/18 08/28/18 08/28/18 23:31 23:45 23:46 Temperature Pulse Rate 63 62 51 Respiratory 16 14 13 Rate Blood Pressure 138/59 (mmHg) O2 Sat by Pulse 97 96 94 Oximetry 08/29/18 08/29/18 08/29/18 00:00 00:01 00:15 Temperature Pulse Rate 60 59 60 Respiratory 9 8 11 Rate Blood Pressure 124/69 (mmHg) O2 Sat by Pulse 96 95 96 Oximetry 08/29/18 08/29/18 08/29/18 00:30 00:31 00:45 Temperature Pulse Rate 46 53 42 Respiratory 15 19 20 Rate Blood Pressure 129/72 (mmHg) O2 Sat by Pulse 98 96 97 Oximetry 08/29/18 08/29/18 08/29/18 01:00 01:01 01:15 Temperature Pulse Rate 63 42 50 Respiratory 20 14 17 Rate Blood Pressure 117/64 (mmHg) O2 Sat by Pulse 93 98 96 Oximetry 08/29/18 08/29/18 08/29/18 01:30 01:31 01:45 Temperature Pulse Rate 51 59 54 Respiratory 13 15 16 Rate Blood Pressure 125/69 (mmHg) O2 Sat by Pulse 97 96 95 Oximetry 08/29/18 08/29/18 08/29/18 02:00 02:01 02:15 Temperature Pulse Rate 42 47 54 Respiratory 9 16 15 Rate Blood Pressure 141/66 (mmHg) O2 Sat by Pulse 98 98 96 Oximetry 08/29/18 08/29/18 08/29/18 02:30 02:31 02:45 Temperature Pulse Rate 49 51 40 Respiratory 15 15 16 Rate Blood Pressure 116/52 (mmHg) O2 Sat by Pulse 91 92 90 Oximetry 08/29/18 08/29/18 08/29/18 03:00 03:01 03:15 Temperature Pulse Rate 43 45 52 Respiratory 16 17 16 Rate Blood Pressure 124/61 (mmHg) O2 Sat by Pulse 97 97 97 Oximetry 08/29/18 08/29/18 08/29/18 03:16 03:30 03:31 Temperature 97.8 F Pulse Rate 56 52 Respiratory 14 14 Rate Blood Pressure 123/61 (mmHg) O2 Sat by Pulse 96 86 Oximetry 08/29/18 08/29/18 08/29/18 03:45 04:00 04:01 Temperature Pulse Rate 45 45 51 Respiratory 16 15 16 Rate Blood Pressure 128/51 (mmHg) O2 Sat by Pulse 94 94 93 Oximetry 08/29/18 08/29/18 08/29/18 04:15 04:30 04:31 Temperature Pulse Rate 45 53 53 Respiratory 17 20 12 Rate Blood Pressure 116/72 (mmHg) O2 Sat by Pulse 96 94 94 Oximetry 08/29/18 08/29/18 08/29/18 04:45 05:00 05:01 Temperature Pulse Rate 51 54 51 Respiratory 15 14 20 Rate Blood Pressure 124/57 (mmHg) O2 Sat by Pulse 96 97 96 Oximetry Oxygen Devices in Use Now: BiPAP Appearance: lying flat, NAD Eyes: No Scleral Icterus, PERRLA Ears/Nose/Mouth/Throat: NL Teeth, Lips, Gums, Clear Oropharnyx Neck: NL Appearance and Movements; NL JVP, Trachea Midline Respiratory: Symmetrical Chest Expansion and Respiratory Effort, Clear to Auscultation Cardiovascular: RRR Abdominal: - - obese, NT, ND Lymphatic: No Cervical Adenopathy Extremities: - - 1-2+ tense LE edema Neurological: - - AOx1 to self, right arm 3/5, left 1-2/5, B/l LE 1/5 - right facial droop noted by neurology team Result Diagrams: 08/26/18 21:11 08/26/18 21:11 Microbiology and Other Data: Microbiology 08/27/18 04:22 Nasal Screen MRSA (PCR) - Final Nasal Mrsa Not Detected Assess/Plan/Problems-Billing Assessment: 72 yo M h/o chronic PEs, afib on coumadin, CAD/CABG, CVA, DM2, PETRA on BiPAP suffered controlled fall with PT at [facility] 2 days [employer] with subsequent increased confusion and lethargy then right UE weakness found in hospital with enoch CRUZ however o/p cards notes this is not new - Patient Problems (1) Hypoglycemia Comment: in setting of decreased appetite I question whether he takes glimeperide as outpatient. Also concern that there may be underlying infection Given 1 dose CTX and normal saline yesterday. 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 Mittal and HB is not new. Plan on f/u with o/p cards who will refer to EP if needed TTE complete maintain tele hold all AV yoanna blocking agents (none on outpatient or o/p cards med rec) -Of note, fall at [facility] was while working with PT and reportedly related to positioning not an episode of LH or LOC (3) Weakness Comment: new RUE weakness h/o stroke, concern for new CVA or cord compression based on CT c-spine and no other deficit on exam -however, reports slurred speech on phone prior to arrival and strength in RUE is improving/subtle right facial droop which may be less c/w worsening cord compression neuro surgery consulted - decision re: CT myelogram pending, will hold plavix, will need to hold coumadin (4) Altered mental status Comment: confirms that [facility] told her pt received additional doses of morphine after fall on Saturday. After this increased lethargy. Suspect iotrogenic narcotic overdose Also on ddx: CVA, baclofen dose, infection, hypoglycemia Mental status cleared with time and CPAP although noted worse in AM which may correlate with overnight hypoxia/hypercapnia - may need BiPAP titration (5) Atrial fibrillation Comment: coumadin holding and watching INR - start heparin when <2 (6) Chronic pulmonary embolism Comment: coumadin as above IJ and subclavian (left) occlusions noted on right UE US (7) PETRA (obstructive sleep apnea) Comment: CPAP (8) DVT prophylaxis Comment: coumadin
[2018-08-29] MEDS: Levothyroxine TAB* 100 MCG TAB PO SCH (06:05)
[2018-08-29] MEDS: oxyCODONE TAB* 5 MG TAB PO PRN ×2 (06:07→19:45)
[2018-08-29 06:13] LABS: ABS Eosinophils 0.2 10^3/ul (0-0.6); ABS Lymphocytes 0.9 10^3/ul (1.0-4.8); ABS Monocytes 0.8 10^3/ul (0-0.8); ABS Neutrophils 7.8 10^3/ul (1.5-7.7); Eosinophil % 2.1 %; Hematocrit 41 % (42-52); Lymphocyte % 9.1 %; Mean Corpuscular HGB Conc 34 g/dL (31-36); Mean Corpuscular Hemoglobin 29 pg (27-31); Mean Corpuscular Volume 85 fL (80-94); Mean Platelet Volume 7.3 fL (7.4-10.4); Platelet Count 218 10^3/uL (150-450); Red Blood Count 4.85 10^6 /uL (4.18-5.48); Red Cell Distribution Width 17 % (10-15); White Blood Count 9.7 10^3/uL (3.5-10.8)
[2018-08-29 06:17] LABS: INR 2.13 (0.82-1.09)
[2018-08-29 06:29] LABS: BUN/Creatinine Ratio 18.9 (8-20); Calcium 8.3 mg/dL (8.6-10.3); EGFR African American 70.3 (>60); EGFR Non-African American 58.1 (>60); Potassium 4.1 mmol/L (3.5-5.0)
[2018-08-29] MEDS ORDERED: Glimepiride (NF) 2 MG TAB PO SCH (09:00)
[2018-08-29] MEDS: Lactobacillus Acidophilus* 1 TAB PO SCH (11:10)
[2018-08-29] MEDS: CMCS:Ketorolac 0.5% OPHTH (NF) 0.5 % 5 ML BTL BOTH EYES SCH ×3 (11:11→23:55)
[2018-08-29] MEDS: Gabapentin CAP(*) 400 MG PO SCH ×3 (11:11→23:53)
[2018-08-29] MEDS: Baclofen TAB* 20 MG PO SCH ×4 (11:11→23:53)
[2018-08-29] MEDS: DULoxetine DR CAP* 30 MG CAP.DR PO SCH (13:04)
[2018-08-29] MEDS ORDERED: D10W 1000 ML BAG* 1,000 ML IV SCH (13:42)
[2018-08-29] MEDS: Atorvastatin* 10 MG TAB PO SCH (16:51)
[2018-08-29] MEDS ORDERED: cefTRIAXone(*) 1 GM in NS 0.9% 50 ML* 50 ML IVPB SCH (17:00)
[2018-08-29] MEDS ORDERED: Warfarin TAB(*) 4 MG PO ONE (17:00)
--- NOTE | 2018-08-29 18:57 | PN ---
Subjective Date of Service: 08/29/18 Length of Stay: 2 Days Neurology is following for right arm weakness. Interval History: The patient was transferred to the ICU overnight for hypoglycemia and hypotension. Urine culture was positive for proteus in the urine. He was started on antibiotic therapy. Today, the patient is much more awake and interactive. He reports that his right arm became weak after he slid down his wheelchair. He stated that he was not placed correctly on the wheelchair and subsequently had a fall. He denied any visual disturbance. He denied any speech disturbance. His spouse noticed his facial droop has resolved. The patient refused to wear the MJC. I had recommended a soft cervical collar. He feels that the right arm weakness is better than before but the hand is still weak. He denied any headaches other than slight pressure pain when he bumped his head on the the bed's headboard. He denied any significant headache. Review of Systems: Denied CP, SOB, or palpitations. Objective Active Medications: Atorvastatin Calcium (Lipitor*) 10 mg PO QPM [facility]; Protocol Last Admin: 08/29/18 16:51 Dose: 10 mg Baclofen (Lioresal Tab*) 40 mg PO QID [facility] Last Admin: 08/29/18 16:50 Dose: 40 mg Clopidogrel Bisulfate (Plavix Tab*) 75 mg PO DAILY [facility] Dextrose (D50w Syringe 50 Ml*) 25 gm IV PUSH ONCE PRN PRN Reason: FS < 60 Last Admin: 08/29/18 02:18 Dose: 25 gm Duloxetine HCl (Cymbalta Cap*) 30 mg PO DAILY [facility] Last Admin: 08/29/18 13:04 Dose: 30 mg Gabapentin (Neurontin Cap(*)) 400 mg PO TID [facility] Last Admin: 08/29/18 13:04 Dose: 400 mg Ceftriaxone Sodium 1 gm/ (Sodium Chloride) 50 mls @ 200 mls/hr IVPB Q24H [facility] Last Admin: 08/29/18 16:41 Dose: 200 mls/hr Ketorolac Tromethamine (Ketorolac 0.5% Ophth (Nf)) 1 drop BOTH EYES TID [facility] Last Admin: 08/29/18 13:04 Dose: 1 drop Lactobacillus Rhamnosus (Lactobacillus Acidophilus*) 2 tab PO DAILY [facility] Last Admin: 08/29/18 11:10 Dose: 2 tab Levothyroxine Sodium (Synthroid Tab*) 100 mcg PO QAM@0600 [facility] Last Admin: 08/29/18 06:05 Dose: 100 mcg Loperamide HCl (Imodium Cap*) 2 mg PO Q4H PRN PRN Reason: DIARRHEA Nitroglycerin (Nitroglycerin Tab 0.4 Mg*) 0.4 mg SL Q5M PRN PRN Reason: chest pain Oxycodone HCl (Roxycodone Tab*) 10 mg PO Q6H PRN PRN Reason: PAIN Last Admin: 08/29/18 06:07 Dose: 10 mg Pharmacy Profile Note (Coumadin Per Pharmacy*) 1 note FOLLOW UP .PER PHARMACY PROTOC [facility]; Protocol Silver Sulfadiazine (Silvadine 1%*) 1 applic TOPICAL BEDTIME [facility] Last Admin: 08/28/18 21:51 Dose: 1 applic Vital Signs 08/28/18 08/28/18 08/28/18 19:46 21:00 21:02 Temperature 97.8 F 98.9 F Pulse Rate 70 57 Respiratory 18 18 9 Rate Blood Pressure 122/47 122/64 (mmHg) O2 Sat by Pulse 99 94 Oximetry 08/28/18 08/28/18 08/28/18 21:04 21:15 21:16 Temperature Pulse Rate 54 59 60 Respiratory 12 16 19 Rate Blood Pressure 122/64 130/68 (mmHg) O2 Sat by Pulse 95 94 94 Oximetry 08/28/18 08/28/18 08/28/18 21:30 21:31 21:45 Temperature Pulse Rate 55 66 56 Respiratory 0 20 18 Rate Blood Pressure 130/66 (mmHg) O2 Sat by Pulse 95 94 94 Oximetry 08/28/18 08/28/18 08/28/18 21:53 22:00 22:15 Temperature Pulse Rate 64 55 Respiratory 19 17 17 Rate Blood Pressure 149/64 (mmHg) O2 Sat by Pulse 89 96 Oximetry 08/28/18 08/28/18 08/28/18 22:16 22:30 22:31 Temperature Pulse Rate 60 52 60 Respiratory 18 16 15 Rate Blood Pressure 144/78 151/55 (mmHg) O2 Sat by Pulse 96 98 96 Oximetry 08/28/18 08/28/18 08/28/18 22:45 22:46 23:00 Temperature Pulse Rate 57 57 49 Respiratory 15 16 16 Rate Blood Pressure 118/62 127/62 (mmHg) O2 Sat by Pulse 97 96 98 Oximetry 08/28/18 08/28/18 08/28/18 23:10 23:15 23:30 Temperature 98.1 F Pulse Rate 52 45 Respiratory 17 15 Rate Blood Pressure (mmHg) O2 Sat by Pulse 95 94 Oximetry 08/28/18 08/28/18 08/28/18 23:31 23:45 23:46 Temperature Pulse Rate 63 62 51 Respiratory 16 14 13 Rate Blood Pressure 138/59 (mmHg) O2 Sat by Pulse 97 96 94 Oximetry 08/29/18 08/29/18 08/29/18 00:00 00:01 00:15 Temperature Pulse Rate 60 59 60 Respiratory 9 8 11 Rate Blood Pressure 124/69 (mmHg) O2 Sat by Pulse 96 95 96 Oximetry 08/29/18 08/29/18 08/29/18 00:30 00:31 00:45 Temperature Pulse Rate 46 53 42 Respiratory 15 19 20 Rate Blood Pressure 129/72 (mmHg) O2 Sat by Pulse 98 96 97 Oximetry 08/29/18 08/29/18 08/29/18 01:00 01:01 01:15 Temperature Pulse Rate 63 42 50 Respiratory 20 14 17 Rate Blood Pressure 117/64 (mmHg) O2 Sat by Pulse 93 98 96 Oximetry 08/29/18 08/29/18 08/29/18 01:30 01:31 01:45 Temperature Pulse Rate 51 59 54 Respiratory 13 15 16 Rate Blood Pressure 125/69 (mmHg) O2 Sat by Pulse 97 96 95 Oximetry 08/29/18 08/29/18 08/29/18 02:00 02:01 02:15 Temperature Pulse Rate 42 47 54 Respiratory 9 16 15 Rate Blood Pressure 141/66 (mmHg) O2 Sat by Pulse 98 98 96 Oximetry 08/29/18 08/29/18 08/29/18 02:30 02:31 02:45 Temperature Pulse Rate 49 51 40 Respiratory 15 15 16 Rate Blood Pressure 116/52 (mmHg) O2 Sat by Pulse 91 92 90 Oximetry 08/29/18 08/29/18 08/29/18 03:00 03:01 03:15 Temperature Pulse Rate 43 45 52 Respiratory 16 17 16 Rate Blood Pressure 124/61 (mmHg) O2 Sat by Pulse 97 97 97 Oximetry 08/29/18 08/29/18 08/29/18 03:16 03:30 03:31 Temperature 97.8 F Pulse Rate 56 52 Respiratory 14 14 Rate Blood Pressure 123/61 (mmHg) O2 Sat by Pulse 96 86 Oximetry 08/29/18 08/29/18 08/29/18 03:45 04:00 04:01 Temperature Pulse Rate 45 45 51 Respiratory 16 15 16 Rate Blood Pressure 128/51 (mmHg) O2 Sat by Pulse 94 94 93 Oximetry 08/29/18 08/29/18 08/29/18 04:15 04:30 04:31 Temperature Pulse Rate 45 53 53 Respiratory 17 20 12 Rate Blood Pressure 116/72 (mmHg) O2 Sat by Pulse 96 94 94 Oximetry 08/29/18 08/29/18 08/29/18 04:45 05:00 05:01 Temperature Pulse Rate 51 54 51 Respiratory 15 14 20 Rate Blood Pressure 124/57 (mmHg) O2 Sat by Pulse 96 97 96 Oximetry 08/29/18 08/29/18 08/29/18 05:15 05:30 05:45 Temperature Pulse Rate 66 65 73 Respiratory 20 19 17 Rate Blood Pressure 133/60 (mmHg) O2 Sat by Pulse 97 97 97 Oximetry 08/29/18 08/29/18 08/29/18 06:00 06:15 06:30 Temperature Pulse Rate 57 61 67 Respiratory 12 14 16 Rate Blood Pressure (mmHg) O2 Sat by Pulse 97 95 96 Oximetry 08/29/18 08/29/18 08/29/18 06:45 07:00 07:15 Temperature Pulse Rate 46 61 49 Respiratory 8 20 4 Rate Blood Pressure (mmHg) O2 Sat by Pulse 95 89 94 Oximetry 08/29/18 08/29/18 08/29/18 07:30 07:45 08:00 Temperature 97.5 F Pulse Rate 50 60 60 Respiratory 9 13 4 Rate Blood Pressure (mmHg) O2 Sat by Pulse 93 97 96 Oximetry 08/29/18 08/29/18 08/29/18 08:15 08:30 08:45 Temperature Pulse Rate 58 61 59 Respiratory 22 15 18 Rate Blood Pressure (mmHg) O2 Sat by Pulse 95 93 97 Oximetry 08/29/18 08/29/18 08/29/18 10:06 10:15 10:30 Temperature Pulse Rate 58 62 46 Respiratory 19 14 6 Rate Blood Pressure (mmHg) O2 Sat by Pulse 96 94 100 Oximetry 08/29/18 08/29/18 08/29/18 10:45 11:00 11:15 Temperature Pulse Rate 66 58 48 Respiratory 17 16 7 Rate Blood Pressure (mmHg) O2 Sat by Pulse 97 98 98 Oximetry 08/29/18 08/29/18 08/29/18 11:30 11:33 11:45 Temperature Pulse Rate 50 54 45 Respiratory 13 18 9 Rate Blood Pressure 112/64 (mmHg) O2 Sat by Pulse 96 98 97 Oximetry 08/29/18 08/29/18 08/29/18 11:58 12:00 12:02 Temperature 97.9 F Pulse Rate 50 63 Respiratory 15 22 Rate Blood Pressure 126/67 (mmHg) O2 Sat by Pulse 97 94 Oximetry 08/29/18 08/29/18 08/29/18 12:15 12:30 12:45 Temperature Pulse Rate 59 69 53 Respiratory 23 11 17 Rate Blood Pressure (mmHg) O2 Sat by Pulse 95 97 95 Oximetry 08/29/18 08/29/18 08/29/18 13:00 13:01 13:15 Temperature Pulse Rate 49 45 48 Respiratory 7 7 11 Rate Blood Pressure 120/66 (mmHg) O2 Sat by Pulse 99 97 98 Oximetry 08/29/18 08/29/18 08/29/18 13:30 13:45 14:00 Temperature Pulse Rate 69 56 46 Respiratory 18 15 9 Rate Blood Pressure 147/74 (mmHg) O2 Sat by Pulse 98 98 98 Oximetry 08/29/18 08/29/18 08/29/18 14:15 14:30 14:45 Temperature Pulse Rate 47 40 45 Respiratory 12 14 18 Rate Blood Pressure (mmHg) O2 Sat by Pulse 99 99 98 Oximetry 08/29/18 08/29/18 08/29/18 15:00 15:01 15:15 Temperature Pulse Rate 55 37 43 Respiratory 20 13 12 Rate Blood Pressure 143/87 (mmHg) O2 Sat by Pulse 97 98 97 Oximetry 08/29/18 08/29/18 08/29/18 15:28 15:30 15:45 Temperature Pulse Rate 39 43 Respiratory 13 14 14 Rate Blood Pressure (mmHg) O2 Sat by Pulse 96 95 Oximetry 08/29/18 08/29/18 08/29/18 16:00 16:01 16:15 Temperature 98.4 F Pulse Rate 37 37 35 Respiratory 15 15 13 Rate Blood Pressure 130/66 (mmHg) O2 Sat by Pulse 96 96 94 Oximetry 08/29/18 08/29/18 08/29/18 16:30 16:45 17:00 Temperature Pulse Rate 36 36 36 Respiratory 15 14 15 Rate Blood Pressure (mmHg) O2 Sat by Pulse 94 95 96 Oximetry 08/29/18 08/29/18 08/29/18 17:01 17:15 17:30 Temperature Pulse Rate 37 37 50 Respiratory 15 15 16 Rate Blood Pressure 136/60 (mmHg) O2 Sat by Pulse 94 94 99 Oximetry 08/29/18 08/29/18 08/29/18 17:39 17:45 18:00 Temperature Pulse Rate 48 58 Respiratory 16 14 17 Rate Blood Pressure (mmHg) O2 Sat by Pulse 97 96 Oximetry 08/29/18 08/29/18 18:01 18:15 Temperature Pulse Rate 64 57 Respiratory 13 14 Rate Blood Pressure 139/82 (mmHg) O2 Sat by Pulse 97 97 Oximetry Intake and Output Last 24 Hours 08/27/18 08/28/18 08/29/18 08/30/18 06:59 06:59 06:59 06:59 Intake Total 960 3017 1116 Output Total 200 Balance 760 3017 1116 Weight 386 lb 9.6 oz 386 lb 4.8 oz 401 lb 9.6 oz Intake: IV Fluids 2217 766 D10W 1217 766 Oral 960 800 350 Output: Urine 200 Other: Estimated Void Large Large # Voids 1 3 Oxygen Devices in Use Now: High Flow Nasal Cannula Neurology Exam: General: Chronically ill appearing man in no distress. He is using the CPAP. HEENT: Normocephelic/atraumatic, sclera anicteric, mucous membranes moist. Specifically examined his head and there is no evidence of head trauma or bruising. Neck: Supple Chest: Clear to auscultation bilaterally Cardiovascular: Regular rate and rhythm without murmurs, rubs, gallops Extremities: No clubbing, cyanosis, or edema Neurological Findings: Awake, alert, and oriented to person, place, and time. He was joking with the examiner saying that he is since his reflexes are absent. Speech: mild dysarthric speech but the family reported that this was his normal speech. Cranial Nerve: PERRL, EOM intact, upgaze vertical nystagmus. No double vision. No ptosis. Motor: nearly plegic on the left arm with contractures and spasticity. He can wiggle his toes bilaterally but cannot move the leg (paraparesis 1-2/5 strength ) . These findings are chronic. However, he does have 3-4/5 weakness to finger abduction and flexion on the right which is reported to be new. Shoulder abduction, elbow flexion and extension are 4/5 on the right.. Sensation: reduced sensation to the left arm. Normal sensation on the face bilaterally. Deep Tendon Reflex: trace in the upper, 0 in the lower. Unable to perform cerebellar testing on the left. Mild finger to nose dysmetria on the right. Gait: bedbound Result Diagrams: 08/29/18 06:00 08/29/18 06:00 Microbiology and Other Data: Microbiology 08/27/18 04:22 Nasal Screen MRSA (PCR) - Final Nasal Mrsa Not Detected Assessment/Plan 1. Acute-subacute right arm paresis- slowly improving. Etiology: most likely related to worsening cervical spondylosis. Patient has known cervical and LS degenerative disc disease since 2011. He was deemed not a candidate for surgery then due to weight. The new problem is that he slid off his wheelchair then noticed right arm weakness. The patient was able to give good history today since he was encephalopathic yesterday. He reported falling off the wheelchair with some flexion extension of the neck, then he developed weakness. Given the improvement in his motor function, I don't suspect this is a stroke but instead possible edema or inflammatory changes to the cervical cord. He does have evidence of vertical nystagmus on examination (could be chronic), but a small brainstem stroke cannot be entirely excluded. The repeat CT head without contrast showed no areas of hypodensity which I would expect to see if he was having a large stroke. The medical management would not change since he is on both coumadin and Plavix therapy. CTA head was not done as his symptoms were improving and stroke causing his right arm weakness is low on the differential given the extensive cervical spine disease. The patient needs an MRI of the C spine without contrast if deemed a candidate for cervical spine surgery. If an MRI can be done at an outside facility, add an MRI brain without contrast to assess the cause of his vertical nystagmus. Depending on neurosurgery, a CT myelogram can be considered but the patient will need to be off Plavix. He is cleared to be off Plavix from the neurology standpoint while on heparin gtt (since he will need to also be off coumadin). This is a complicated situation and will need extensive coordination of care. I discussed the case with Dr. Randhawa in detail. The patient may need to be transferred to a facility that has an MRI that would accommodate his weight. The patient is at risk of developing severe quadraplegia due to cervical spinal cord compression. 2. Acute toxic-metabolic encephalopathy- Slowly improving. The etiology was related to hypoglycemia, hypotension, UTI, and medication effect from the extra doses of morphine he had received for his pain. 3. Reported history of a previous stroke in 2003: continue anti-platelet and anticoagulation therapy. He has intolerance to statin therapy. Neurology will sign off but please contact us for any questions or concerns.
--- NOTE | 2018-08-29 21:30 | DS ---
TRANSFER SUMMARY: DATE OF ADMISSION: 08/26/18 DATE OF TRANSFER: Currently being arranged transfer at a future date - . PRIMARY CARE PROVIDER: No primary care provider. He is a resident of [facility]. DISPOSITION ON DISCHARGE: Transfer to higher level of care. CONDITION ON DISCHARGE: Stable. MEDICATIONS AT THE TIME OF DISCHARGE: Include: 1. Atorvastatin 10 mg in the evening. 2. Baclofen 40 mg 4 times a day. 3. Ceftriaxone 1 g every 24 hours. 4. Plavix 75 mg daily. 5. Duloxetine 30 mg daily. 6. Gabapentin 400 mg 3 times a day. 7. Ketorolac eye drops. 8. Lactobacillus 2 tabs daily. 9. Levothyroxine 100 mcg in the morning. 10. Loperamide 2 mg every 4 hours as needed for diarrhea. 11. Nitroglycerin sublingual tabs as needed for chest pain. 12. Oxycodone 10 mg every 6 hours as needed for pain. 13. Coumadin per Pharmacy. 14. Silvadene topically at bedtime. PRIMARY DIAGNOSES: Include: 1. Severe cervical stenosis concerning for etiology of right arm weakness. 2. Severe hypoglycemia. 3. Urinary tract infection. 4. Concern for stroke. 5. 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 6. Morbid obesity. 7. Altered mental status. SECONDARY DIAGNOSES: Include: 1. Mobitz type 1 heart block. 2. Impressive type 1 degree heart block. 3. Hypertension. 4. Chronic pain. 5. Obstructive sleep apnea, on BiPAP. 6. Diastolic heart failure. 7. Chronic compensated type 2 diabetes. 8. Peripheral neuropathy. 9. Major depressive disorder. 10. Hypoglycemia. 11. Atrial fibrillation. 12. Coronary artery disease. 13. Recurrent diarrhea. 14. Chronic pulmonary embolisms. HISTORY OF PRESENT ILLNESS AND HOSPITAL COURSE: A 72-year-old man with past medical history as outlined in the history of present illness on day of admission, had a fall 2 days prior to presentation. 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 Of note, the patient has chronic left- sided weakness, although the right-sided weakness was new. The patient's identified increasing somnolence as well as right arm weakness and the patient was evaluated at [facility]. In evaluation of his somnolence, it came to light that he was likely receiving [facility] doses at the [facility] in the setting of his recent fall and increased pain. His original presenting altered mental status resolved with continued BiPAP at the time. No antibiotics. However, his hospital course was complicated by episode of hypoglycemia, hypotension with systolic blood pressures ed at 87/58 on . There was concern for infectious etiology. The patient was started on ceftriaxone as well as bolused 3 L of normal saline. Urinalysis on presentation was negative; however, repeat when a Elizalde was placed on the 08/28/18 grew back proteus in his urine, potentially source of increased confusion, hypotension and hypoglycemia that developed on 08/28/18. The patient required D10 normal saline at a 125 cc per hour as well as D50 boluses to maintain his sugar in acceptable ranges for approximately 16 hours. It should be noted the patient was on glimepiride 4 mg on presentation, which certainly contributed to this prolonged episode of hypoglycemia despite adequate intake. The patient was identified with Mobitz type 1 heart block in the hospital. There was a conversation between our film archivist and his film archivist, Dr. Mittal, who indicated this is known for many years and he will evaluate further for appropriate permanent pacemaker, if any, to place for this patient and referral to EP if needed at a later time. Therefore, we turned our attention to his right arm weakness. Cervical spine CT on presentation was notable for severe multilevel degenerative spondylosis greatest at the C3-C4 level with severe spinal stenosis and severe bilateral neuro foraminal narrowing as well as ventral cord compression. CT of his brain was not evident for any stroke and also repeat CT of his brain performed approximately 48 hours later. Therefore, there was concern for severe spinal stenosis contributing to his right arm weakness especially in the setting of fall 2 days prior to presentation. An attempt was made for MRI of brain and C-spine; however, the patient was too wide to fit in our MRI scanner. Therefore, a transfer to a center that could perform an open MRI of his brain and spine with further evaluation for neurosurgical intervention was sought and is currently in progress for the transfer to center. At the time of this dictation, the patient is off of D10. His mental status is back to his baseline. He is receiving ceftriaxone for urinary tract infection and he remains on an intermittent Mobitz type 1 heart block. We will note that his right arm strength has greatly improved since presentation. This plan was discussed at length with Neurology and Neurosurgery. We note that a CT myelogram is possible. He is on Plavix and Coumadin at this time, both of which we would have to hold in order to perform a CT myelogram, but would not give sufficient anatomy to proceed with neurosurgical intervention without an MRI of C-spine. For the receiving facility, please; 1. Evaluate MRI brain and C-spine for cervical pathology contributing to right arm weakness, maintain the patient in [place] J collar, which he is currently refusing. Consider CT myelogram if necessary based on the above testing after withholding Coumadin and Plavix for appropriate time. 2. Continue ceftriaxone total of 7 days, today is day 2 of 7 on 08/29/18. 3. Continue Coumadin for underlying atrial fibrillation as well as known chronic pulmonary embolism and newly identified subclavian and left IJ DVTs. 4. Continue BiPAP for known sleep apnea with chronic hypercarbia. 5. Would recommend telemetry for known underlying trifascicular block, although no plan for pacemaker from our institution at this time after subspecialty service discussion with his primary film archivist, Dr. Mittal. 6. For diabetes, continue to withhold glimepiride. Consider other agent at the time of discharge as he developed severe and prolonged hypoglycemia during the course of our hospital stay. Thank you for your assistance in the care of this patient. Please do not hesitate to call with further questions or concerns. [id number]/[facility] #: [id number] YANET
[2018-08-29] MEDS: Silver Sulfadiazine 1%* 20 GM TOPICAL SCH (22:00)
[2018-08-30] MEDS: oxyCODONE TAB* 5 MG TAB PO PRN (04:15)
--- NOTE | 2018-08-30 06:03 | PN ---
Hospitalist Progress Note Date of Service: 08/30/18 I was called for concern for a 3rd degree heart block. I came to evaluate the rhythm strips and EKG and agree with the concern. The rhythm is challenging due to a prolonged 1st degree av block but this is certainly more high grade than a mobitz 1. He is hemodynamically stable and has no complaints. I spoke with Dr. Head who evaluated the EKG from home. He agrees that this is a high grade av block but cannot be sure that it is a 3rd degree. He recommended connecting the pacer pads but no need for icu transfer if asymptomatic.
[2018-08-30] MEDS: Levothyroxine TAB* 100 MCG TAB PO SCH (06:21)
[2018-08-30] MEDS: Baclofen TAB* 20 MG PO SCH (08:34)
[2018-08-30 08:54] VITALS: BP 104/72
[2018-08-30] MEDS ORDERED: Clopidogrel TAB* 75 MG PO SCH (09:00)
--- NOTE | 2018-08-30 12:28 | DS ---
DISCHARGE SUMMARY: ADDENDUM: DATE OF ADMISSION: 08/28/18 DATE OF DISCHARGE: 08/30/18 HOSPITAL COURSE: Please refer to the detailed discharge summary dictated by Dr. Randhawa last night in anticipation of discharge. The patient seen at 7 a.m. this morning, when EMS was here to take him to [facility]. Concern is the patient' s heart rate has been on the lower side. His prior telemetry scripts have been reviewed. The patient has been in Mobitz type 1 block. Occasionally, his heart rate falls to the 30s and 40s, specifically when he sleeps or dozes off it increases right away to the 60s and 70s. He likely has underlying sleep apnea/ obesity hypoventilation syndrome and bradycardia. Currently, in Mobitz type 1 block with heart rate in the 50s to 60s and asymptomatic from the heart rate stand point. The patient is not dizzy. Blood pressure is in good range and reports that he feels well. The patient was evaluated by Cardiology during the patient's hospital course. The patient may have and may be going into occasional advanced heart block and will benefit from further cardiology evaluation for pacemaker evaluation at [facility]. Case was also discussed by the prior medical team, with the patient's primary basin tender as well as the on- call basin tender Dr. Head and was evaluated by Dr. Bowen. Please refer to her note for details. At the time of transfer, the patient was noted to be asymptomatic from the bradycardia and mostly maintaining his heart rate in the 50s to 60s with no significant abnormality noted on telemetry except KS prolongation. At the time of transfer, case was discussed in detail with EMS, had pacer pads on, but currently not paced and can hold off if the heart rate remains about 40. The patient will need to be transferred as the patient is at high risk for developing severe quadriplegia in the setting of possible cervical spinal cord compression. The patient is unable to move bilateral lower extremities, also noted to have plegia of the left arm and had right-sided weakness that developed after his fall from the wheelchair. Please refer to Dr. Randhawa's note for full details. The patient also needs open MRI and unable to get an MRI scan for further evaluation due to his body mass here and transferring him to higher level of care is extremely important to evaluate and preserve his neurologic status. In light of all this, the patient will be transferred. Please refer to the note dictated by Dr. Randhawa for full details. PHYSICAL EXAMINATION: HEENT: NCAT. Heart: S1, S2 present. Irregularly irregular at the time of exam. Lungs: Clear to auscultation bilaterally. Abdomen: Obese, nontender, no rebound. Extremities: Noted to have edema. Neuro: The patient is unable to lift bilateral lower extremity complaining of right-sided weakness, but able to lift his arm slightly, reports that he cannot currently lift his left arm. Alert, oriented, able to have full conversation and reports that he feels well. Please refer to prior notes and Dr. Randhawa's discharge summary for full details. TIME SPENT: Total time spent is equal to 35 minutes. [id number]/[facility] #: [id number] [facility]
== END 2018-08-30 08:00 | disposition short-term general hospital (02) | DRG 551 ==
LOC: ED 20:40 → MED 08-27 03:44 → MEDTELE 08-27 06:30 → OBSVTOIN 08-28 17:06 → ICU 08-28 21:05 → MEDTELE 08-29 19:12
PROVIDERS: ADMIT Internal Medicine; ATTEND Neuromusculoskeletal Medicine, Sports Medicine
DX: M47.12 Other spondylosis with myelopathy, cervical region (principal); G82.50 Quadriplegia, unspecified; I50.32 Chronic diastolic (congestive) heart failure; I69.354 Hemiplegia and hemiparesis following cerebral infarction affecting left non-dominant side; Z68.43 Body mass index [BMI] 50.0-59.9, adult; I27.82 Chronic pulmonary embolism; N39.0 Urinary tract infection, site not specified; I82.C12 Acute embolism and thrombosis of left internal jugular vein; I82.602 Acute embolism and thrombosis of unspecified veins of left upper extremity; E66.2 Morbid (severe) obesity with alveolar hypoventilation; I45.3 Trifascicular block; M43.12 Spondylolisthesis, cervical region; M48.02 Spinal stenosis, cervical region; R40.2362 Coma scale, best motor response, obeys commands, at arrival to emergency department; R40.2142 Coma scale, eyes open, spontaneous, at arrival to emergency department; R40.2242 Coma scale, best verbal response, confused conversation, at arrival to emergency department; I44.1 Atrioventricular block, second degree; I45.10 Unspecified right bundle-branch block; I10 Essential (primary) hypertension; G89.29 Other chronic pain; G47.33 Obstructive sleep apnea (adult) (pediatric); E11.42 Type 2 diabetes mellitus with diabetic polyneuropathy; F03.90 Unspecified dementia, unspecified severity, without behavioral disturbance, psychotic disturbance, mood disturbance, and anxiety; I48.91 Unspecified atrial fibrillation; I25.10 Atherosclerotic heart disease of native coronary artery without angina pectoris; E78.5 Hyperlipidemia, unspecified; E03.9 Hypothyroidism, unspecified; I48.0 Paroxysmal atrial fibrillation; I89.0 Lymphedema, not elsewhere classified; F32.9 Major depressive disorder, single episode, unspecified; R00.1 Bradycardia, unspecified; I27.20 Pulmonary hypertension, unspecified; M54.5 Low back pain; E11.649 Type 2 diabetes mellitus with hypoglycemia without coma; I95.9 Hypotension, unspecified; Z95.1 Presence of aortocoronary bypass graft; Z88.6 Allergy status to analgesic agent; Z88.8 Allergy status to other drugs, medicaments and biological substances; Z86.711 Personal history of pulmonary embolism; Z82.49 Family history of ischemic heart disease and other diseases of the circulatory system; Z79.01 Long term (current) use of anticoagulants
CPT/HCPCS: 36415; 70450; 71045; 72070; 72100; 72125; 80048; 80053; 81003; 81015; 82140; 82607; 82803; 82947; 83036; 83605; 84443; 84484; 85025; 85610; 87077; 87086; 87186; 87641; 93005; 93306; 94660; 99285; A9270-GY; C8929; G0378; J0696; J2270

== ENCOUNTER 2018-09-10 22:23 | Emergency (ER) | payer MEDICARE ==
[2018-09-10 22:57] LABS: ABS Basophils 0.1 10^3/ul (0-0.2); ABS Eosinophils 0.3 10^3/ul (0-0.6); ABS Lymphocytes 1.1 10^3/ul (1.0-4.8); ABS Monocytes 0.5 10^3/ul (0-0.8); ABS Neutrophils 7.4 10^3/ul (1.5-7.7); Eosinophil % 3.5 %; Hematocrit 40 % (42-52); Hemoglobin 13.5 g/dL (14.0-18.0); Lymphocyte % 11.6 %; Mean Corpuscular HGB Conc 34 g/dL (31-36); Mean Corpuscular Hemoglobin 29 pg (27-31); Mean Corpuscular Volume 85 fL (80-94); Mean Platelet Volume 7.2 fL (7.4-10.4); Platelet Count 334 10^3/uL (150-450); Red Blood Count 4.75 10^6 /uL (4.18-5.48); Red Cell Distribution Width 17 % (10-15); White Blood Count 9.3 10^3/uL (3.5-10.8)
[2018-09-10 23:03] LABS: INR 2.33 (0.82-1.09)
[2018-09-10 23:15] LABS: Albumin 3.5 g/dL (3.2-5.2); Calcium 8.8 mg/dL (8.6-10.3); EGFR African American 88.4 (>60); Globulin 3.4 g/dL (2-4); Potassium 4.3 mmol/L (3.5-5.0); Total Bilirubin 0.5 mg/dL (0.2-1.0); Total Protein 6.9 g/dL (6.4-8.9)
[2018-09-10 23:16] LABS: Troponin I 0.01 ng/mL (<0.04)
--- NOTE | 2018-09-10 23:26 | ED ---
HPI Chest Pain - HPI Summary HPI Summary: Pt is a 72 y/o M presenting to the ED brought in by EMS from [facility] with a chief complaint of chest pain that he states only lasted for a minute or so. He also reports neck and back pain, but without change from baseline. He denies fever, abd pain, or decreased appetite. Upon arrival, EMS reported his blood sugar was 49. His hx includes a quadruple bypass in 2001, pre-diabetic, and a fall in 2011 where he broke his C-spine and L-spine, losing the function of his legs and L arm. He states he currently feels fine. - History of Current Complaint Chief Complaint: EDChestPainROMI Time Seen by Provider: 09/10/18 22:32 Hx Obtained From: Patient Onset/Duration: Started Hours Ago, Resolved Timing: Intermittent, Lasting Minutes Initial Severity: Mild Current Severity: None Pain Intensity: 7 Pain Scale Used: 0-10 Numeric Chest Pain Location: Diffuse Chest Pain Radiates: No Aggravating Factor(s): Nothing Alleviating Factor(s): Spontaneous Resolution Associated Signs and Symptoms: Positive: Chest Pain, Back Pain - and back pain, no different from baseline. Negative: Fever, Abdominal Pain, Other: - decreased appetite - Additional Pertinent History Primary Care Physician: [id number] - Allergy/Home Medications Allergies/Adverse Reactions: Allergies Allergy/AdvReac Type Severity Reaction Status Date / Time codeine Allergy Unknown Verified 09/10/18 22:35 Reaction Details simvastatin [From Zocor] Allergy Unknown Verified 08/26/18 21:31 Reaction Details tramadol Allergy Unknown Verified 08/26/18 21:31 Reaction Details PMH/Surg Hx/FS Hx/Imm Hx Previously Healthy: Yes Endocrine/Hematology History: Reports: Hx Anticoagulant Therapy Cardiovascular History: Denies: Hx Hypertension, Hx Pacemaker/ICD Musculoskeletal History: Reports: Hx Back Problems, Other Musculoskeletal History - 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 Sensory History: Denies: Hx Contacts or Glasses, Hx Hearing Aid Opthamlomology History: Denies: Hx Contacts or Glasses Neurological History: Reports: Hx Headaches, Other Neuro Impairments/Disorders - Stroke in 2001 Psychiatric History: Denies: Hx Panic Disorder - Surgical History Surgery Procedure, Year, and Place: quadruple bypass, bilateral knee surgery, lumbar hernia repair, - Immunization History Date of Tetanus Vaccine: unk Date of Influenza Vaccine: fall 2017 Infectious Disease History: No Infectious Disease History: Denies: Traveled Outside the [place] in Last 30 Days - Family History Known Family History: Negative: Respiratory Disease - Social History Alcohol Use: unknown Hx Substance Use: No Substance Use Type: Reports: None Hx Tobacco Use: Yes Smoking Status (MU): Former Smoker Review of Systems Negative: Fever, Other - decreased appetite Positive: Chest Pain Negative: Abdominal Pain Positive: Myalgia - neck white, back pain All Other Systems Reviewed And Are Negative: Yes Physical Exam - Summary Physical Exam Summary: Appearance: Morbidly obese man lying on stretcher in [facility] Skin: Warm, dry, no obvious rash Eyes: sclera anicteric, no conjunctival pallor ENT: mucous membranes moist, pharynx appears normal Neck: Supple, nontender Respiratory: Clear to auscultation, no signs of respiratory distress Cardiovascular: Normal S1, S2. No murmurs. Normal distal pulses in tibial and radial bilaterally. Abdomen: Morbidly obese, soft, nontender, normal active bowel sounds present Musculoskeletal: Unable to move LE Neurological: A&Ox3, awake and alert, mentation is normal, speech is fluent and appropriate Psychiatric: affect is normal, does not appear anxious or depressed Triage Information Reviewed: Yes Vital Signs On Initial Exam: Initial Vitals Temp Pulse Resp BP Pulse Ox 97.6 F 66 16 95/47 85 09/10/18 22:26 09/10/18 22:26 09/10/18 22:26 09/10/18 22:26 09/10/18 22:26 Vital Signs Reviewed: Yes Diagnostics - Vital Signs Vital Signs Temp Pulse Resp BP Pulse Ox 09/10/18 23:01 43 5 92/57 94 09/10/18 23:00 43 10 94 09/10/18 22:55 35 3 92/57 95 09/10/18 22:43 45 95 09/10/18 22:26 97.6 F 66 16 95/47 85 - Laboratory Lab Results: Lab Results 09/10/18 09/10/18 09/10/18 Range/Units 22:52 22:52 22:52 WBC 9.3 (3.5-10.8) 10^3/uL RBC 4.75 (4.18-5.48) 10^6 /uL Hgb 13.5 L (14.0-18.0) g/dL Hct 40 L (42-52) % MCV 85 (80-94) fL MCH 29 (27-31) pg MCHC 34 (31-36) g/dL RDW 17 H (10-15) % Plt Count 334 (150-450) 10^3/uL MPV 7.2 L (7.4-10.4) fL Neut % (Auto) 78.9 % Lymph % (Auto) 11.6 % Charlotte % (Auto) 4.9 % Eos % (Auto) 3.5 % Baso % (Auto) 1.1 % Absolute Neuts (auto) 7.4 (1.5-7.7) 10^3/ul Absolute Lymphs (auto) 1.1 (1.0-4.8) 10^3/ul Absolute Monos (auto) 0.5 (0-0.8) 10^3/ul Absolute Eos (auto) 0.3 (0-0.6) 10^3/ul Absolute Basos (auto) 0.1 (0-0.2) 10^3/ul Absolute Nucleated RBC 0.0 10^3/ul Nucleated RBC % 0.0 INR (Anticoag Therapy) 2.33 H (0.82-1.09) Sodium 137 (135-145) mmol/L Potassium 4.3 (3.5-5.0) mmol/L Chloride 104 (101-111) mmol/L Carbon Dioxide 26 (22-32) mmol/L Anion Gap 7 (2-11) mmol/L BUN 21 (6-24) mg/dL Creatinine 1.00 (0.67-1.17) mg/dL Est GFR ( Amer) 88.4 (>60) Est GFR (Non-Af Amer) 73.0 (>60) BUN/Creatinine Ratio 21.0 H (8-20) Glucose 107 H (70-100) mg/dL POC Glucose (mg/dL) (70-100) mg/dL Calcium 8.8 (8.6-10.3) mg/dL Total Bilirubin 0.50 (0.2-1.0) mg/dL AST 13 (13-39) U/L ALT 17 (7-52) U/L Alkaline Phosphatase 150 H (34-104) U/L Troponin I 0.01 (<0.04) ng/mL Total Protein 6.9 (6.4-8.9) g/dL Albumin 3.5 (3.2-5.2) g/dL Globulin 3.4 (2-4) g/dL Albumin/Globulin Ratio 1.0 (1-3) 09/10/18 Range/Units 23:03 WBC (3.5-10.8) 10^3/uL RBC (4.18-5.48) 10^6 /uL Hgb (14.0-18.0) g/dL Hct (42-52) % MCV (80-94) fL MCH (27-31) pg MCHC (31-36) g/dL RDW (10-15) % Plt Count (150-450) 10^3/uL MPV (7.4-10.4) fL Neut % (Auto) % Lymph % (Auto) % Charlotte % (Auto) % Eos % (Auto) % Baso % (Auto) % Absolute Neuts (auto) (1.5-7.7) 10^3/ul Absolute Lymphs (auto) (1.0-4.8) 10^3/ul Absolute Monos (auto) (0-0.8) 10^3/ul Absolute Eos (auto) (0-0.6) 10^3/ul Absolute Basos (auto) (0-0.2) 10^3/ul Absolute Nucleated RBC 10^3/ul Nucleated RBC % INR (Anticoag Therapy) (0.82-1.09) Sodium (135-145) mmol/L Potassium (3.5-5.0) mmol/L Chloride (101-111) mmol/L Carbon Dioxide (22-32) mmol/L Anion Gap (2-11) mmol/L BUN (6-24) mg/dL Creatinine (0.67-1.17) mg/dL Est GFR ( Amer) (>60) Est GFR (Non-Af Amer) (>60) BUN/Creatinine Ratio (8-20) Glucose (70-100) mg/dL POC Glucose (mg/dL) 100 (70-100) mg/dL Calcium (8.6-10.3) mg/dL Total Bilirubin (0.2-1.0) mg/dL AST (13-39) U/L ALT (7-52) U/L Alkaline Phosphatase (34-104) U/L Troponin I (<0.04) ng/mL Total Protein (6.4-8.9) g/dL Albumin (3.2-5.2) g/dL Globulin (2-4) g/dL Albumin/Globulin Ratio (1-3) Result Diagrams: 09/10/18 22:52 09/10/18 22:52 Lab Statement: Any lab studies that have been ordered have been reviewed, and results considered in the medical decision making process. - EKG 2237 Cardiac Rate: Other Rate - 56 - afib EKG Rhythm: Atrial Fibrillation - 56bpm ST Segment: Normal Ectopy: None Summary of EKG Findings: EKG at 2237 shows atrial fibrillation at 56 BPM, P waves, QRS complex, and T waves are within normal limits, T waves and intervals are normal, and there is RBBB pattern. There is no STEMI. Chest Pain Course/Dx - Course Course Of Treatment: Pt is a 72 y/o M presenting to the ED brought in by EMS from [facility] with a chief complaint of chest pain that he states only lasted for a minute or so. He also reports neck and back pain, but without change from baseline. He denies fever, abd pain, or decreased appetite. Upon arrival, EMS reported his blood sugar was 49. His hx includes a quadruple bypass in 2001, pre -diabetic, and a fall in 2011 where he broke his C-spine and L-spine, losing the function of his legs and L arm. He states he currently feels fine. EKG at 2237 shows atrial fibrillation at 56 BPM, P waves, QRS complex, and T waves are within normal limits, T waves and intervals are normal, and there is RBBB pattern. There is no STEMI. Pts lab results show Hgb of 13.5, Hct of 40, RDW of 17, MPV of 7.2, INR of 2.33, BUN/Creatinine ratio of 21.0, and Alkaline Phosphate of 150. The pt's first and second troponin is 0.01. Pt will be sent home with a dx of chest pain. He is stable and agreeable with this plan. - Diagnoses Provider Diagnoses: Chest pain Discharge - Sign-Out/Discharge Documenting (check all that apply): Patient Departure Patient Received Moderate/Deep Sedation with Procedure: No - Discharge Plan Condition: Good Disposition: HOME Patient Education Materials: Chest Pain (ED) Referrals: [facility] [Outside] - Billing Disposition and Condition Condition: GOOD Disposition: Home - Attestation Statements Document Initiated by Sherin: Yes Documenting Scribe: Jaimie Doss Provider For Whom Sherin is Documenting (Include Credential): Manjit Villagomez MD. Scribe Attestation: Jaimei Whitlock, shirleyed for Manjit Villagomez MD. on 09/11/18 at 0538. Scribe Documentation Reviewed: Yes Provider Attestation: The documentation as recorded by the Jaimie grande accurately reflects the service I personally performed and the decisions made by me, Manjit Villagomez MD. Status of Scribe Document: Viewed
--- OUTSIDE RECORDS SUMMARY | 2018-09-10 23:39 | XMS REPORT | Continuity of Care Document ---
:1945 External Reference #:[id number] Author Name Penny Morin Care Team Providers Name Role Phone Juan Hou MD Care Team Information Supervisor [employer] Department Unavailable Payers Date Identification Numbers Payment Provider Subscriber Policy Number: [id number] [employer] Luis Can PayID: [id number] [facility] [address] [place] [address] Social History Type Date Description Comments Sex Unknown
[2018-09-11 03:27] VITALS: BP 117/49
== END 2018-09-11 03:37 | disposition home or self-care (01) ==
LOC: ED 22:23
DX: R07.89 Other chest pain (principal); I48.91 Unspecified atrial fibrillation; I45.10 Unspecified right bundle-branch block; M54.2 Cervicalgia; M54.9 Dorsalgia, unspecified; R73.03 Prediabetes; Z79.01 Long term (current) use of anticoagulants; Z95.1 Presence of aortocoronary bypass graft; Z86.73 Personal history of transient ischemic attack (TIA), and cerebral infarction without residual deficits; Z88.5 Allergy status to narcotic agent; Z88.8 Allergy status to other drugs, medicaments and biological substances; Z87.891 Personal history of nicotine dependence
CPT/HCPCS: 36415; 80053; 84484; 85025; 85610; 93005; 99284

== ENCOUNTER 2018-09-24 21:03 | Inpatient (IN) | payer MEDICARE ==
[2018-09-24] MEDS ORDERED: Dextrose 50% Syringe 50 ML* 25 GM/50 ML SYRINGE IV PUSH ONE (21:30)
[2018-09-24] MEDS ORDERED: Dextrose 50% VIAL 50 ml ONE (21:32)
--- NOTE | 2018-09-24 21:38 | ED ---
Altered Mental Status - HPI Summary HPI Summary: This pt is a 72 y/o M brought in by EMS from [facility] to [facility] accompanied by his son with a CC of hypoglycemia. He stated that he did not eat anything today and that he does not take any medication. He states that he feels more fatigued than usual. His last meal was yesterday due to a low appetite. He also stated that he has lightheadedness. He currently does not walk due to back and neck injuries. He denies any fever, diaphoresis, N/V/D, and abdominal pain. He had no aggravating or alleviating symptoms. - History Of Current Complaint Chief Complaint: EDGeneral Stated Complaint: WEAKNESS PER EMS Time Seen by Provider: 09/24/18 21:13 Hx Obtained From: Patient, Family/Regular Senior Care Provider - son Last Known Well Date: ENTERER Onset/Duration: Unknown, Still Present Timing: Constant Severity Initially: Mild Severity Currently: Mild Character: Responsiveness Aggravating Factor(s): Nothing Alleviating Factor(s): Nothing Associated Signs And Symptoms: Positive: Negative - diaphoresis, abdominal pain , Weakness. Negative: Nausea, Vomiting, Fever - Allergies/Home Medications Allergies/Adverse Reactions: Allergies Allergy/AdvReac Type Severity Reaction Status Date / Time codeine Allergy Unknown Verified 09/10/18 22:35 Reaction Details simvastatin [From Zocor] Allergy Unknown Verified 08/26/18 21:31 Reaction Details tramadol Allergy Unknown Verified 08/26/18 21:31 Reaction Details PMH/Surg Hx/FS Hx/Imm Hx Previously Healthy: Yes Endocrine/Hematology History: Reports: Hx Anticoagulant Therapy Cardiovascular History: Denies: Hx Hypertension, Hx Pacemaker/ICD Musculoskeletal History: Reports: Hx Back Problems, Other Musculoskeletal History - 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 Sensory History: Denies: Hx Contacts or Glasses, Hx Hearing Aid Opthamlomology History: Denies: Hx Contacts or Glasses Neurological History: Reports: Hx Headaches, Other Neuro Impairments/Disorders - Stroke in 2001 Psychiatric History: Denies: Hx Panic Disorder - Surgical History Surgery Procedure, Year, and Place: quadruple bypass, bilateral knee surgery, lumbar hernia repair, - Immunization History Date of Tetanus Vaccine: unk Date of Influenza Vaccine: fall 2017 Infectious Disease History: No Infectious Disease History: Denies: Traveled Outside the [place] in Last 30 Days - Family History Known Family History: Negative: Respiratory Disease - Social History Alcohol Use: None Hx Substance Use: No Substance Use Type: Reports: None Hx Tobacco Use: Yes Smoking Status (MU): Former Smoker Review of Systems Positive: Fatigue. Negative: Fever, Skin Diaphoresis Positive: Other - hypoglycemic Negative: Abdominal Pain, Vomiting, Diarrhea, Nausea Positive: Weakness. Negative: Headache All Other Systems Reviewed And Are Negative: Yes Physical Exam - Summary Physical Exam Summary: VITAL SIGNS: Reviewed. GENERAL: Patient is a well-developed and Morbidly obese male who is lying comfortable in the stretcher. Patient is not in any acute respiratory distress. HEAD AND FACE: No signs of trauma. No ecchymosis, hematomas or skull depressions. No sinus tenderness. EYES: PERRLA, EOMI x 2, No injected conjunctiva, no nystagmus. EARS: Hearing grossly intact. Ear canals and tympanic membranes are within normal limits. MOUTH: Oropharynx within normal limits. NECK: Supple, trachea is midline, no adenopathy, no JVD, no carotid bruit, no c- spine tenderness, neck with full ROM CHEST: Symmetric, no tenderness at palpation LUNGS: Decreased breath sounds bilaterally. No wheezing or crackles. CVS: irregular bradycardia, regular rhythm, S1 and S2 present, no murmurs or gallops appreciated. ABDOMEN: Soft, non-tender. No signs of distention. No rebound no guarding, and no masses palpated. Bowel sounds are normal. EXTREMITIES: FROM in all major joints, no edema, no cyanosis or clubbing. NEURO: Alert and oriented x 3. Speech is normal and follows commands. paraplegic SKIN: Dry and warm Triage Information Reviewed: Yes Vital Signs On Initial Exam: Initial Vitals Temp Pulse Resp BP Pulse Ox 98.1 F 40 14 0/0 94 09/24/18 21:11 09/24/18 21:11 09/24/18 21:11 09/24/18 21:11 09/24/18 21:11 Vital Signs Reviewed: Yes Diagnostics - Vital Signs Vital Signs Temp Pulse Resp BP Pulse Ox 09/24/18 21:11 98.1 F 40 14 0/0 94 - Laboratory Result Diagrams: 09/24/18 21:47 09/24/18 21:47 Lab Statement: Any lab studies that have been ordered have been reviewed, and results considered in the medical decision making process. - EKG 2130 Cardiac Rate: NL - 36 BPM EKG Rhythm: Sinus Bradycardia Summary of EKG Findings: Sinus bradycardia with a 1st degree AV block and a RBBB. Interpreted by Dr. Umanzor at 212909/24/18. 2148 Cardiac Rate: NL - 61 BPM EKG Rhythm: Sinus Rhythm Summary of EKG Findings: After Atropine push was used, the pt had a normal sinus rhythm of 61 BPM and a 1st degree AV block with a RBBB and PECs. Interpreted by Dr. Umanzor at 09/24/182148. Altered Mental Statu Course/Dx - Course Course Of Treatment: This pt is a 72 y/o M [facility] due to hypoglycemia. The pt stated that he hasn't eaten since yesterday and that he is unusally weak and fatigued. His PE found that he was Morbidly obese, paraplegic, has decreased breath sounds bilaterally, and has irregular bradycardia. His HR was 38 BPM upoon exam. His lab showed abnormalities in alkaline phosphatase, gluces, and INR. His first EKG at 2129 showed that he had sinus bradycardia of 36 and 1st degree AV block with a RBBB. He received Atropine as a push with good effect and had an EKG conducted after the dossage was administered. The 2nd EKG was conducted at 2148 and showed that he had a normal sinus rhythm of 61 BPM with a 1st degree AV block, RBBB and PECs. The pt will be admitted to [facility] with a Dx of hypoglycemia and bradycardia. The admitting doctor was Dr. Dominguez, Hospitalist. - Diagnoses Provider Diagnoses: Hypoglycemia, Bradycardia - Provider Notifications Discussed Care Of Patient With: Ana Dominguez Time Discussed With Above Provider: 22:55 Instructed by Provider To: Admit As Inpatient Admit/Transition Orders Completed By ED Provider: Yes Discharge - Sign-Out/Discharge Documenting (check all that apply): Patient Departure - admitted Patient Received Moderate/Deep Sedation with Procedure: No - Discharge Plan Condition: Stable Disposition: ADMITTED TO [facility] - Billing Disposition and Condition Condition: STABLE Disposition: Admitted to [facility] - Attestation Statements Document Initiated by Scribe: Yes Documenting Scribe: Chris Sumner Provider For Whom Scribe is Documenting (Include Credential): Arie Umanzor MD Scribe Attestation: Chris Whitlock scribed for Arie Umanzor MD on 09/25/18 at 0443. Scribe Documentation Reviewed: Yes Provider Attestation: The documentation as recorded by the clayibeChris accurately reflects the service I personally performed and the decisions made by me, Arie Umanzor MD Status of Scribe Document: Viewed
[2018-09-24] MEDS ORDERED: Atropine 1MG/ML INJ* 1 ML VIAL IV PUSH ONE (21:41)
[2018-09-24] MEDS ORDERED: Atropine SYRINGE* 0.1 MG/ML 10 ML SYRINGE (1 MG) ONE (21:43)
[2018-09-24] MEDS ORDERED: Atropine SYRINGE* 0.1 MG/ML 10 ML SYRINGE (1 MG) IV PUSH ONE (21:45)
[2018-09-24 21:56] LABS: ABS Basophils 0.1 10^3/ul (0-0.2); ABS Eosinophils 0.2 10^3/ul (0-0.6); ABS Lymphocytes 0.9 10^3/ul (1.0-4.8); ABS Monocytes 0.6 10^3/ul (0-0.8); ABS Neutrophils 7.9 10^3/ul (1.5-7.7); Hematocrit 39 % (42-52); Hemoglobin 12.8 g/dL (14.0-18.0); Lymphocyte % 8.8 %; Mean Corpuscular HGB Conc 33 g/dL (31-36); Mean Corpuscular Hemoglobin 28 pg (27-31); Mean Corpuscular Volume 83 fL (80-94); Mean Platelet Volume 7.1 fL (7.4-10.4); Nucleated Red Blood Cells % 0.1; Platelet Count 238 10^3/uL (150-450); Red Blood Count 4.67 10^6 /uL (4.18-5.48); Red Cell Distribution Width 17 % (10-15); White Blood Count 9.7 10^3/uL (3.5-10.8)
[2018-09-24] MEDS ORDERED: Dextrose 50% VIAL 50 ml IV ONE (22:00)
[2018-09-24 22:08] LABS: Activated Partial Thrombo Time 64.7 seconds (26.0-38.0)
[2018-09-24 22:14] LABS: Albumin 3.4 g/dL (3.2-5.2); Albumin/Globulin Ratio 1.1 (1-3); BUN/Creatinine Ratio 18.4 (8-20); Calcium 8.5 mg/dL (8.6-10.3); EGFR African American 85.4 (>60); EGFR Non-African American 70.6 (>60); Magnesium 1.9 mg/dL (1.9-2.7); Total Bilirubin 0.5 mg/dL (0.2-1.0); Total Protein 6.4 g/dL (6.4-8.9)
[2018-09-24 22:24] LABS: INR 5.12 (0.82-1.09)
[2018-09-24 22:57] LABS: TSH (Thyroid Stimulating Horm) 2.41 mcIU/mL (0.34-5.60)
[2018-09-24 23:38] LABS: Urine Appearance Cloudy; Urine Bacteria 1+ (Absent); Urine Bilirubin Negative (Negative); Urine Blood 3+ (Negative); Urine Color Yellow; Urine Glucose Negative (Negative); Urine Ketones Negative (Negative); Urine Nitrite Negative (Negative); Urine Protein Negative (Negative); Urine Red Blood Cell 3+(>10/hpf) (Absent); Urine Specific Gravity 1.005 (1.010-1.030); Urine Urobilinogen Negative (Negative); Urine White Blood Cell Trace(0-5/hpf) (Absent)
[2018-09-25] MEDS ORDERED: NS 0.9% 1000 ML** 2,000 ML IV ONE (00:20)
[2018-09-25] MEDS ORDERED: NS 0.9% 1000 ML** 1,000 ML IV ONE (00:50)
[2018-09-25] MEDS ORDERED: methylPREDNISolone SOD 40 MG* 1 ML VIAL IV ONE (01:15)
[2018-09-25] MEDS ORDERED: Famotidine IV* 10 MG/ML 2 ML (20 mg) IV SLOW PU ONE (01:17)
[2018-09-25] MEDS ORDERED: Acetaminophen TAB* 325 MG PO PRN (02:23)
[2018-09-25] MEDS ORDERED: Phytonadione IV (Adult)* 10 MG/ML 1 ML AMP IV ONE (02:36)
[2018-09-25] MEDS ORDERED: D10W 1000 ML BAG* 1,000 ML IV SCH (04:00)
[2018-09-25] MEDS: cefTRIAXone(*) 1 GM in NS 0.9% 50 ML* 50 ML IVPB SCH (04:13)
[2018-09-25] MEDS: Levothyroxine TAB* 100 MCG TAB PO SCH (05:58)
[2018-09-25 06:07] LABS: ABS Eosinophils 0.1 10^3/ul (0-0.6); ABS Lymphocytes 0.4 10^3/ul (1.0-4.8); ABS Monocytes 0.2 10^3/ul (0-0.8); ABS Neutrophils 6.1 10^3/ul (1.5-7.7); Eosinophil % 0.8 %; Hematocrit 38 % (42-52); Hemoglobin 11.5 g/dL (14.0-18.0); Lymphocyte % 6.6 %; Mean Corpuscular HGB Conc 30 g/dL (31-36); Mean Corpuscular Hemoglobin 28 pg (27-31); Mean Corpuscular Volume 93 fL (80-94); Mean Platelet Volume 7.4 fL (7.4-10.4); Nucleated Red Blood Cells % 0.1; Platelet Count 180 10^3/uL (150-450); Red Blood Count 4.12 10^6 /uL (4.18-5.48); Red Cell Distribution Width 18 % (10-15); White Blood Count 6.8 10^3/uL (3.5-10.8)
[2018-09-25 06:09] LABS: INR 4.82 (0.82-1.09)
--- NOTE | 2018-09-25 06:09 | HP ---
CC: [facility] * HISTORY AND PHYSICAL: DATE OF ADMISSION: 09/25/18 PROVIDER: Miriam Alexis NP ATTENDING PROVIDER: Dr. Dominguez * (DICTATED BY MIRIAM ALEXIS NP) CHIEF COMPLAINT: Altered mental status, hypoglycemia, bradycardia, hypotension. HISTORY OF PRESENT ILLNESS: Mr. Can is a 72-year-old male with a past medical history significant for diabetes, hypertension, obstructive sleep apnea , on BiPAP, diastolic congestive heart failure, hypothyroid, atrial fibrillation , coronary artery disease, who is brought to the emergency room by EMS for altered mental status, hypoglycemia, bradycardia, and hypotension. The patient started to come upon evaluation in the emergency room. He could answer some questions, but fell back asleep during mid conversation. History of present illness was hard to obtain. History was obtained from his old records and the ER record as family was not available at the bedside and family was attempted to be contacted, but unable to reach. According to the emergency room record, the patient currently resides at [facility] and was sent to the emergency room due to hypoglycemia. The son, who is initially present, states that the patient did not eat today and did not take any of his medications. He was more fatigued than normal. He has also had decreased appetite and his last meal was yesterday. The patient complains of lightheadedness. The patient is immobile wheel dinora bound due to history of back and neck injuries. The patient denies any fever or chills. He denies chest pain or edema. Denies any cough, hemoptysis, or shortness of breath. He does report some dizziness. He denies any nausea, vomiting, diarrhea, or abdominal pain. Denies any pain with urination. Denies any difficulty swallowing, rashes. He does complain of open area to bilateral buttocks, coccyx region. While in the emergency room, the patient had routine lab work drawn. He was found initially to have a blood sugar in the 40s by EMS. He was given an amp of D50 in the emergency room. Repeat blood sugar on lab work was 193. He was also found to be bradycardic in the 40s and was given atropine. Due to the patient's altered mental status, bradycardia, hypoglycemia, hypotension, we were asked to see and evaluate the patient for admission. Of note, it was reported that the patient is to follow up with his primary casting machine control board operator, Dr. Tera Mittal in [place] on Saturday for evaluation for pacemaker placement. PAST MEDICAL HISTORY: Significant for: 1. Hypertension. 2. Chronic pain. 3. Obstructive sleep apnea, on BiPAP. 4. Diastolic congestive heart failure. 5. Type 2 diabetes. 6. Peripheral neuropathy. 7. Major depressive disorder. 8. Hypothyroid. 9. Atrial fibrillation. 10. Coronary artery disease. 11. Recurrent diarrhea. PAST SURGICAL HISTORY: The patient reports he had: 1. Hemorrhoidectomy. 2. Right elbow surgery. 3. Bilateral knee meniscus repairs. MEDICATIONS: Home medications include: 1. Morphine 30 mg p.o. q.12 hours p.r.n. 2. Nitroglycerin 0.4 mg subcu q.5 minutes as needed for chest pain. 3. Ketorolac 0.5 ophthalmic 1 drop to both eyes 3 times a day. 4. Gabapentin 400 mg 4 tablets at bedtime. 5. Imodium 2 mg p.o. q.4 hours as needed for diarrhea. 6. Glimepiride 4 mg p.o. q.a.m. 7. Warfarin 4 mg p.o. daily. 8. Lactobacillus 2 tabs p.o. daily. 9. Rosuvastatin 5 mg p.o. daily. 10. Duloxetine 30 mg p.o. daily. 11. Baclofen 40 mg p.o. 4 times a day. 12. Clopidogrel 75 mg p.o. daily. 13. Gabapentin 1 tab p.o. t.i.d. 400 mg. 14. Fluticasone 1 spray both nares. 15. Levothyroxine 100 mcg p.o. q.a.m. ALLERGIES: 1. SIMVASTATIN. 2. TRAMADOL. 3. CODEINE. SOCIAL HISTORY: The patient is . He is disabled, retired. Denies any tobacco, alcohol, or illicit drug use. He currently is a resident at [facility]. Surrogate decision maker in the event he is unable to make his own decisions is his . He is a full code. He is immobile and transfers with a Juan lift. REVIEW OF SYSTEMS: A 14-point review of systems was completed. All pertinent positives are mentioned in the HPI, otherwise were negative. PHYSICAL EXAMINATION GENERAL: At this time, Mr. Can is lethargic, but does arouse to sternal rub. Does answer questions appropriately when awake. He is resting on the stretcher in the emergency room. VITAL SIGNS: Blood pressure 100/45, heart rate 45, respirations 14, O2 saturation 97%, temperature was 98.1. HEENT: Head is atraumatic, normocephalic. Eyes: EOMs are intact. Sclerae anicteric and not pale. Oral mucosa appeared to be moist. Pupils are equal and reactive to light. Mucous membranes are dry. NECK: Supple. LUNGS: Diminished bilaterally. No wheezes, rales, or rhonchi. CARDIAC: S1, S2. Regular rate and rhythm. ABDOMEN: Obese, soft, nontender. Bowel sounds are present x4. EXTREMITIES: He does have edema noted to the lower extremities. There is no cyanosis or clubbing. NEUROLOGIC: He is lethargic. He does wake to sternal rub. He is able to answer questions appropriately, but falls back to sleep during mid conversation. He is alert and oriented x3. SKIN: He does have open abrasions noted to bilateral buttocks and purple discoloration noted to the coccyx. DIAGNOSTIC STUDIES/LAB DATA: WBCs are 9.7, RBCs 4.67, hemoglobin 12.8, hematocrit 39, platelet count 238. INR was 5.12. APTT was 64.7. Sodium 135, potassium 4.0, chloride 101, carbon dioxide was 28, anion gap was 6, BUN was 19 , creatinine 1.03, glucose was 93. Calcium 8.5. Magnesium 1.9. ASTs were 9, ALTs were 8, alkaline phosphatase was 135. TSH was 2.41. Cortisol level was 6.01. Urine was within normal limits with the exception of specific gravity of 1.005. Urine blood was 3+. Urine rbc's were 3+, bacteria was 1+, yeast was present. The patient had electrocardiogram, which showed sinus bradycardia at a rate of 36 with prolonged CA interval, right bundle-branch block with T wave inversions in V1, 2, 3 and lead III, aVF. Repeat EKG after atropine showed sinus rhythm at a rate of 61 with PVCs. He had a CT of the brain, radiologist's impression: No acute intracranial abnormality, mild chronic small vessel ischemic disease. ASSESSMENT AND PLAN: Mr. Can is a 72-year-old male with a past medical history significant for hypertension, chronic pain, obstructive sleep apnea, on BiPAP, diastolic congestive heart disease, type 2 diabetes, atrial fibrillation , coronary artery disease, and hypothyroid, who presented to the emergency room with altered mental status, hypoglycemia, bradycardia, and hypotension. He will be placed in the ICU with: 1. Hypoglycemia. The patient was recently admitted with hypoglycemia on , as well as altered mental status. We will hold his glimepiride 4 mg p.o. daily. I will place him on hourly Accu-Cheks. If his blood sugars should continue to drop, we will place him on D5. 2. Bradycardia. The patient does have bradycardia. The patient was ordered 3 L of normal saline in the emergency room. I will place him on ICU. I will have atropine at the bedside. We will have pacer pads applied to the chest. The patient's previous admission on 08/27/18 did show a heart rate of 39 to 65. He is scheduled to follow up with his primary casting machine control board operator, Dr. Scott Mittal in [place] for evaluation for a cardiac pacemaker. Given that the patient is hypotensive, I would recommend consultation to Cardiology in the a.m. The patient does have an INR of 5.12. I will give him 2.5 mg of vitamin K IV. The patient is not currently on any rate control agents. He did have a Transthoracic echocardiogram completed 08/2018 which did show an EF 45-50%, and hypokinesis. 3. Chronic pain. The patient does have chronic pain for which he takes morphine and gabapentin and baclofen. I am going to hold these medications at this time as the patient is lethargic and hypotensive. 4. Obstructive sleep apnea. The patient will continue on BiPAP when sleeping. 5. History of diastolic congestive heart failure. The patient does not appear to be volume overloaded. The patient is not currently on diuretics at this time. We will continue to monitor his volume status and treat as needed. 6. History of atrial fibrillation. The patient does have a supratherapeutic INR at 5.12. I will hold his Coumadin and he will receive vitamin K 2.5 mg IV as the patient may need pacemaker in the immediate future. I will repeat INR in the AM. 7. Hypothyroidism. The patient will continue on levothyroxine 100 mcg p.o. daily. 8. Hypotension. Appear to have some adrenal insufficiency, cortisol level is 6.01, which i would expect to be much higher given his bradycardia and hypotension. I will start him on Solu-Medrol 60 mg IV q.8 hours. 9. Hyperlipidemia. Continue on rosuvastatin 5 mg p.o. q.p.m. 10. DVT prophylaxis. He is on Coumadin. His INR is supratherapeutic. We will hold his Coumadin at this time. 11. FEN. Can have a consistent carb diet. 12. Code status. He is a full code. TIME SPENT: Time spent on this admission was 70 minutes, greater than half that time was spent at the bedside reviewing events leading thus far to this hospitalization, performing physical exam, and reviewing my plan of care. I have discussed this with my attending Dr. Ana Dominguez, she is in agreement with my plan. MIRIAM ALEXIS, KAYLYNN [id number]/[facility] #: [id number] YANET
[2018-09-25 06:19] LABS: BUN/Creatinine Ratio 13.3 (8-20); EGFR African American 83.5 (>60); Potassium 3.2 mmol/L (3.5-5.0)
[2018-09-25] MEDS ORDERED: Sodium Chloride Conc 23.4%* 77 MEQ in D10W 1000 ML BAG* 1,000 ML IV SCH ×4 (07:00)
[2018-09-25] MEDS: Morphine ORAL.SOLN 10 mg* 2 MG/ML UDC 5 ml PO PRN ×2 (07:22→20:30)
[2018-09-25] MEDS: Famotidine IV* 10 MG/ML 2 ML (20 mg) IV SLOW PU SCH ×3 (07:23→20:32)
[2018-09-25] MEDS: Fluticasone NASAL SPRAY 50MCG* 16 gm SPRAY BTL BOTH NARES SCH ×2 (07:25→14:41)
[2018-09-25] MEDS: CMCS:Ketorolac 0.5% OPHTH (NF) 0.5 % 5 ML BTL BOTH EYES SCH ×3 (07:25→20:32)
[2018-09-25 07:37] LABS: Calcium 8.9 mg/dL (8.6-10.3); Potassium 4.9 mmol/L (3.5-5.0)
[2018-09-25 07:43] LABS: BUN/Creatinine Ratio 17.8 (8-20); EGFR African American 87.4 (>60); EGFR Non-African American 72.2 (>60)
[2018-09-25] MEDS ORDERED: methylPREDNISolone SOD 40 MG* 1 ML VIAL IV SCH (09:00)
[2018-09-25 11:10] LABS: Troponin I 0.01 ng/mL (<0.04)
[2018-09-25] MEDS ORDERED: Dextrose 50% VIAL 50 ml IV PUSH PRN (12:19)
[2018-09-25] MEDS: Insulin LISPRO* 1 UNITS UNIT SUBCUT SCH ×3 (12:36→21:15)
[2018-09-25] MEDS ORDERED: Perflutren Lipid Microsphere* 3 ML VIAL ONE (13:06)
--- NOTE | 2018-09-25 13:51 | CONS ---
CARDIOLOGY CONSULTATION: DATE OF CONSULT: 09/25/18 PATIENT OF: Dr. Holden Mittal, [place], at [facility], as well as Dr. Garzon REASON FOR EVALUATION: Bradycardia. HISTORY OF PRESENT ILLNESS: This is a complicated 72-year-old gentleman who lives in a prison, was admitted with altered mental status. He has a longstanding history of coronary artery disease, diastolic heart failure as well as bradyarrhythmias, sinus node dysfunction. He is followed by Dr. Mittal. He has had 3 admissions in the last few months for altered mental status, on , 09/10/18, and 09/24/18. His said that he normally lives in [place] , but he is in the prison while she underwent surgery. The patient and his provide the history, as well as the chart and Dr. Garzon. He does not recall the events of last night, but his said that she does FaceTime visits with him remotely and last night tried to contact him and he did not respond. She asked the staff to check on him and he was found to have decreased responsiveness and was brought to the emergency room. pants closer found him to have a glucose in the 40s and was treated with amp of D50. His repeat blood sugar on his lab work was 193. He was also found to be bradycardic in the 30s and was given atropine. It seems though at baseline he has sinus bradycardia with first-degree AV block, left anterior irish block, and right bundle-branch block. After he received the atropine, there was an EKG that reveals what appears to be AV dissociation, complete heart block with a junctional rhythm. That EKG was from 09/24/18 at 2149 and the rate was approximately 60. He is restricted to wheelchair and bedbound due to past injuries. He also has sleep apnea, on CPAP. He had decreased appetite over the last day and it was noted on his admission labs his admission blood gas was 7.33, 58, 81 raising the possibility of some CO2 retention. He denies chest pain, orthopnea. He has chronic edema. He is unable to move his legs and has limited use of his left arm. He actually denied diabetes, but he is on glimepiride and is on multiple medications that potentially could alter mental status including gabapentin, morphine, duloxetine. 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 He had a TIA at that time. Pulmonary embolism approximately in 2013, paroxysmal atrial fibrillation, sick sinus syndrome, sleep apnea; the chart says hypertension, but the patient and his deny it; history of paroxysmal atrial fibrillation according to the chart, neuropathy, chronic pain, diastolic heart failure, depression, hypothyroidism; recurrent diarrhea of unclear etiology, apparently he had a month long hospitalization in the past with no clear etiology. He occasionally has diarrhea. He had some diarrhea last night, but in general it has been well controlled. PAST SURGICAL HISTORY: Includes coronary bypass grafting, right elbow surgery, hemorrhoidectomy, bilateral knee meniscus repairs. MEDICATIONS: Include: 1. Acetaminophen. 2. Lipitor 10 mg a day. 3. Ceftriaxone 1 g q.24. 4. Pepcid IV 20 mg daily. 5. Flonase. 6. Ketorolac 1 drop in both eyes t.i.d. 7. Levothyroxine 100 mcg q.a.m. 8. He was started on Solu-Medrol 40 mg, 60 IV q.8 here for low cortisol. 9. Morphine 30 mg q.12 p.r.n. 10. Sodium chloride. 11. IV saline at 50 cc/h. 12. He received single dose of vitamin K1 2.5 mg IV. As an outpatient, he was also on: 1. Imodium 2 mg q.4 p.r.n. 2. Glimepiride 4 mg q.a.m. 3. Warfarin. 4. Rosuvastatin 5 mg a day. 5. Clopidogrel 75 mg a day. ALLERGIES: Include SIMVASTATIN, TRAMADOL, and CODEINE. SOCIAL HISTORY: He is and accompanied by his . He has 2 adult children. He denies tobacco, alcohol, or illicit drug use. He resides at [facility]. His is his health care proxy. He is immobile. 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 REVIEW OF SYSTEMS: Review of systems x10 was negative except as above. PHYSICAL EXAM: He is a well-developed, morbidly obese gentleman in no apparent distress. Pulse varying from the 30s to the 50s. Blood pressure 106/59. JVD approximately 8 cm. Carotids 2+ without bruits. Extraocular muscles intact. Sclerae anicteric. Atraumatic, normocephalic. Cardiac Exam: S1, S2, with no clear murmurs, gallops, or rubs. Chest was clear. Abdomen: Obese. Exam limited. Nontender. No hepatosplenomegaly. Femoral pulses intact without bruits. Distal pulses present. He had 2+ edema of lower extremities. Negative Homans sign. He is unable to move his lower extremities. He has partial paresis of his left upper extremity. He has reduced motor strength in his left hand, 3/5; right arm was 5/5. Deep tendon reflexes 2/4 in the upper extremities, absent in lower extremities. He is alert and oriented x3. DIAGNOSTIC STUDIES/LAB DATA: His EKG from this morning revealed marked sinus bradycardia at 43 with prolonged first-degree AV block, left anterior hemiblock , right bundle-branch block, and occasional junctional prematures. Chest x-ray by report vascular congestion. ECG was described. Brain CT from 09/25/18: No acute intracranial abnormality, mild chronic small vessel disease. His echocardiogram from an earlier admission on 08/27/18 revealed mild to moderately reduced EF at 45% to 50% with hypokinesis and dyskinesis of the septum. RV was moderately dilated and moderately reduced function. Moderately to severely dilated RA. Trace to mild MR. Aortic sclerosis. Trace to mild AI. Moderate MR. Ascending aorta was 4 cm. Aortic root was moderately dilated. Peak pressure by Doppler, PA pressure was 39 mmHg. Compared to the prior echo of October 2014 at [facility], prior ejection fraction was reported at 50% to 55%, RV hypokinesis progressed and the right ventricle dilatation has progressed. IMPRESSION: My impression is that Mr. Can is a complex gentleman who appears to have significant conducting system disease, sinus node dysfunction, but also multiple other medical problems. It is unclear how much of his mental status compromise is due to the bradycardia. Other factors may be contributing including hypoglycemia, hypercapnia, and multiple drug interactions and sedation. Nevertheless, he does appear to have significant bradycardia. Even while I was examining him, he was frequently in the mid 30s and has various rhythms which raised the possibility of intermittent third degree AV block. I have discussed the case with Dr. Garzon and with his and his hospitalist. For the time being, I recommend following: I placed a call to Dr. Mittal at [phone] to discuss the case and coordinate further evaluation of his bradycardia and conductive system disease. Apparently, he had EP consult scheduled by Dr. Mittal with Dr. Cox for tomorrow. We would repeat his echo to determine whether he has developed worsening LV function. He is to have a troponin given his history of coronary artery disease and the uncertain etiology of his presentation. We would avoid hypoglycemia and hypercapnia. We would try to reduce his sedating medications. He also has a history of low cortisol and is being treated for adrenal insufficiency. I did explain to the patient and his that although he has a significant conducting system disease, it is not clear that would totally explain his presentation, although I do think that he is probably compromised by low output and due to his significant persistent bradycardia and might benefit from improved resting heart rate. [id number]/[facility] #: [id number] addendum: discussed with Dr. Mittal 09.26.18 given uncertain relationship of sx's to longstanding sinus node issues, the plan was to arrange EP evaluation as a outpatient. Dr. Mittal kindly agreed to update the EP MD and I spoke to Dr. Cox's nurse to update his office. RUPA HOLT
--- NOTE | 2018-09-25 14:36 | ECHO ---
*[facility]* [place] [address] Fax #: [phone] Transthoracic Echocardiogram Patient: Luis Can : 1945 Study Date: 09/25/2018 Age: 72 Gender: M HR: 48 bpm Height: 72 in /182.9 cm BSA: 2.86 m^2 Weight: 399.2 lb /181.4 kg BMI: 54.3 kg/m^2 *Rate Clerk: Rama Montejo [facility] *Referring Physician: * Kranthi Stewart MD *Reading Physician: * Kranthi Stewart MD Indications: Congestive Heart Failure. History: Cerebrovascular accident. PMH: Myocardial infarction. Risk factors: Current tobacco use. Obese. Labs, prior tests, procedures, and surgery: Coronary artery bypass grafting. Conclusions Summary: - Study data: Mild interval improvement in ejection fraction from 45-50% last time; overall, similar. - Left ventricle: Mild relative anteroseptal hypokinesis/dysynchrony c/w RBBB. The cavity size is mildly dilated. Wall thickness is moderately increased. Systolic function is at the lower limits of normal. The estimated ejection fraction is 50-55%. Systolic function is improved from the study of 08/27/2018. Doppler parameters are consistent with abnormal left ventricular relaxation (grade 1 diastolic dysfunction). - Right ventricle: Systolic function is mildly reduced. - Left atrium: The atrium is mildly to moderately dilated. - Aortic valve: The valve is trileaflet. The leaflets are mildly thickened. - Tricuspid valve: There is mild-moderate regurgitation. - Ascending aorta: The ascending aorta is moderately dilated. Study data: Transthoracic echocardiogram. Procedure: Transthoracic echocardiography was performed. Image quality was suboptimal. Intravenous Definity , 3 mlswas administered. Image enhancement administered by Liya (intensive care unit RN). Complete 2D, spectral Doppler, and color flow Doppler. Location: ICU Patient status: Inpatient. Patient room number: 8. The previous study was not available, so comparison is made to the report of 08/27/2018. Mild interval improvement in ejection fraction from 45-50% last time; overall, similar. Rhythm: Heart block. Findings Left ventricle: Mild relative anteroseptal hypokinesis/dysynchrony c/w RBBB. The cavity size is mildly dilated. Wall thickness is moderately increased. Systolic function is at the lower limits of normal. The estimated ejection fraction is 50-55%. Systolic function is improved from the study of 08/27/2018. Regional wall motion abnormalities cannot be excluded. Doppler parameters are consistent with abnormal left ventricular relaxation (grade 1 diastolic dysfunction). Right ventricle: The cavity size is normal. Systolic function is mildly reduced. Ventricular septum: The interventricular septum appears dyssynchronous. Left atrium: The atrium is mildly to moderately dilated. Right atrium: Not well visualized. Mitral valve: The leaflets are mildly thickened. There is no evidence of stenosis. There is trace regurgitation. Aortic valve: The valve is trileaflet. The leaflets are mildly thickened. There is no evidence of stenosis. There is trace to mild regurgitation. Tricuspid valve: The leaflets are normal thickness. There is no evidence of stenosis. There is mild-moderate regurgitation. Pulmonic valve: The leaflets are normal thickness. There is no evidence of stenosis. There is trace regurgitation. Aorta: Aortic root: The aortic root is appears normal. Ascending aorta: The ascending aorta is moderately dilated. Aortic arch: The aortic arch is appears normal. Pericardium: There is no significant pericardial effusion. Pulmonary arteries: Not well visualized. Systolic pressure is within the normal range. Systemic veins: Inferior vena cava: The vessel is dilated. Respirophasic changes in dimension are absent. Measurements Left ventricle Value Ref Mitral valve Value Ref NYASIA, LAX (H) 6.2 cm 4.2 - 5.8 Peak E 0.73 m/sec ----- ESD, LAX (H) 4.2 cm 2.5 - 4.0 Peak A 0.49 m/sec ----- FS, LAX 32 % 25 - 43 Decel time 253 ms ----- PW, ED, LAX (H) 1.5 cm 0.6 - 1.0 Peak grad, D 2.1 mm Hg ----- EF 60 % 52 - 72 Peak E/A ratio 1.5 ----- E', lat miguel, TDI 12.6 cm/sec >=10.0 E/e', lat miguel, 6 Pulmonic valve Value Ref TDI Peak v, S 0.66 m/sec ----- E', med miguel, TDI 7.1 cm/sec >=7.0 Peak grad, S 2.0 mm Hg --- -- E/e', med miguel, 10 TDI Tricuspid valve Value Ref E', avg, TDI 9.9 cm/sec TR peak v 2.2 m/sec <=2 .8 E/e', avg, TDI 7 <=14 Peak RV-RA grad, S 19 mm Hg --- -- LVOT Value Ref Aortic root Value Ref Peak dallas, S 0.93 m/sec Root diam 4.2 cm <4.8 Mean grad, S 2 mm Hg Ascending aorta Value Ref Ventricular septum Value Ref AAo AP diam, S 4.3 cm ----- IVS, ED (H) 1.4 cm 0.6 - 1.0 Aortic arch Value Ref Right ventricle Value Ref Arch diam 3.3 cm ----- NYASIA, LAX 3.3 cm Pressure, S 27 mm Hg Decending aorta Value Ref Duncan peak dallas 0.65 m/sec ----- Left atrium Value Ref AP dim, ES (H) 4.90 cm 3.00 - Pulmonary artery Value Ref 4.00 Pressure, S 25.0 mm Hg ----- Vol/bsa, ES, 2-p (H) 38 ml/m^2 16 - 34 Inferior vena cava Value Ref Right atrium Value Ref Diam 3.3 cm ----- Estimated RAP 8 mm Hg Aortic valve Value Ref Miguel diam, ED 2.9 cm Peak v, S 1.69 m/sec VTI, S 42.0 cm Mean grad, S 7.0 mm Hg Peak grad, S 11.0 mm Hg Legend: (L) and (H) shandra values outside specified reference range. Prepared and electronically signed by Kranthi Stewart MD 09/25/2018 14:35
[2018-09-25] MEDS ORDERED: Atorvastatin* 10 MG TAB PO SCH (18:00)
--- NOTE | 2018-09-25 18:17 | PN ---
Hospitalist Progress Note Date of Service: 09/25/18 Chart review H&P from this AM evaluated. Blood glucose stable, patient is mentating well. He is complaining of pain, but pain medication was held 2/2 AMS. Briefly discussed case with Dr. Stewart who reached out to patient's Coin Box Collector Dr. Mittal regarding pacemaker, but he has not heard back as yet. Continue tele, HR variable in the 40s. Dispo pending.
[2018-09-25] MEDS: methylPREDNISolone SOD 40 MG* 1 ML VIAL IV SCH (20:31)
[2018-09-26] MEDS: cefTRIAXone(*) 1 GM in NS 0.9% 50 ML* 50 ML IVPB SCH (03:58)
[2018-09-26] MEDS: methylPREDNISolone SOD 40 MG* 1 ML VIAL IV SCH (04:00)
[2018-09-26] MEDS: Levothyroxine TAB* 100 MCG TAB PO SCH (04:40)
[2018-09-26] MEDS: Insulin LISPRO* 1 UNITS UNIT SUBCUT SCH ×2 (07:27→14:18)
[2018-09-26] MEDS: Morphine ORAL.SOLN 10 mg* 2 MG/ML UDC 5 ml PO PRN (07:28)
[2018-09-26] MEDS: CMCS:Ketorolac 0.5% OPHTH (NF) 0.5 % 5 ML BTL BOTH EYES SCH ×2 (07:28→14:19)
[2018-09-26] MEDS: Fluticasone NASAL SPRAY 50MCG* 16 gm SPRAY BTL BOTH NARES SCH (07:29)
[2018-09-26] MEDS: Famotidine IV* 10 MG/ML 2 ML (20 mg) IV SLOW PU SCH (07:29)
[2018-09-26] MEDS ORDERED: Cosyntropin* 0.25 MG VIAL IV ONE (08:45)
[2018-09-26 09:45] LABS: ABS Lymphocytes 0.6 10^3/ul (1.0-4.8); ABS Monocytes 0.8 10^3/ul (0-0.8); ABS Neutrophils 17.2 10^3/ul (1.5-7.7); Eosinophil % 0.2 %; Hematocrit 40 % (42-52); Hemoglobin 13.1 g/dL (14.0-18.0); Lymphocyte % 3.3 %; Mean Corpuscular HGB Conc 33 g/dL (31-36); Mean Corpuscular Hemoglobin 27 pg (27-31); Mean Corpuscular Volume 84 fL (80-94); Mean Platelet Volume 7.9 fL (7.4-10.4); Platelet Count 291 10^3/uL (150-450); Red Blood Count 4.77 10^6 /uL (4.18-5.48); Red Cell Distribution Width 17 % (10-15); White Blood Count 18.7 10^3/uL (3.5-10.8)
[2018-09-26 10:08] LABS: Albumin 3.6 g/dL (3.2-5.2); Albumin/Globulin Ratio 1.2 (1-3); BUN/Creatinine Ratio 22.6 (8-20); Calcium 8.6 mg/dL (8.6-10.3); Globulin 3.1 g/dL (2-4); Potassium 4.4 mmol/L (3.5-5.0); Total Bilirubin 0.4 mg/dL (0.2-1.0); Total Protein 6.7 g/dL (6.4-8.9)
[2018-09-26 11:10] LABS: INR 1.64 (0.82-1.09)
--- NOTE | 2018-09-26 15:10 | DS ---
AMENDED REPORT NOW INCLUDES DESIGNATED COSIGNER CC: [facility]; Dr. Mittal, [facility]; Dr. Kranthi Stewart * DATE OF ADMISSION: 09/25/2018. DATE OF DISCHARGE: 09/26/2018. PRIMARY CARE PHYSICIAN: He is a resident of [facility]. ATTENDING PHYSICIAN: Dr. Nasra Burr * (dictated by Becca Benitez NP). HOSPITAL COURSE: Please refer to admitting history and physical by Miriam Alexis NP. In short, Mr. Can is a 72-year-old male patient with a past medical history significant for hypertension, diabetes, PETRA, diastolic heart failure, hypothyroidism, atrial fibrillation, coronary artery disease, chronic pain, and morbid obesity who was brought to the emergency department by EMS services for altered mental status. The patient was noted to be hypoglycemic, bradycardic, and mildly hypotensive. The patient was very sleepy and lethargic. His review of systems and history was difficult to obtain at that time because of his altered mentation. He received a CAT scan of the brain which was negative for any acute process. His laboratories initially were quite altered. For example, his glucose was shown to be 2,351 and a sodium of 101. His labs were immediately repeated which were all normal within half an hour. The patient did have a low glucose, however, in the ambulance ride over. He was given D50. Again CAT scan was performed of the head which was negative. He was bradycardic, however, with a heart rate that was variable in the high 30s to low 40s when placed on telemetry. He was also noted to have some ectopy and some variable heart blocks. For these reasons he was admitted to the ICU for potential pacemaker insertion. There was concern for tachybrady syndrome or other heart blocks or arrhythmias. It was later discovered in his history that the patient was being prepped for potential pacemaker insertion with an diamond selector, Dr. Mittal, at [facility]. The patient was seen in consult by Dr. Kranthi Stewart of Cardiology here at our facility who did reach out to Dr. Mittal to discuss the potential of pacemaker insertion, whether that would happen here at our facility or if the patient would need to be transferred to [facility]. It should also be noted that in the emergency department, along with being given the amp of D50, he was also given a dose of Atropine for his bradycardia. He also had a cortisol level drawn. There was some questionable hypotension during this time as well. His cortisol level was somewhat low in the presence of some relative hypotension. He was given a dose of steroid for potential adrenal insufficiency. The patient also had a supratherapeutic INR with an INR of 5.12. He did not have any active bleeding; however, given the constellation of symptoms with his altered mental status and other changes, he was given one dose of vitamin K for reversal and his Coumadin was held. Dr. Stewart from Cardiology did evaluate the patient and as stated above had a conversation with Dr. Mittal from [facility]. Because there was some AV dissociation and then times of complete heart block and then other times there was junctional rhythm, I think it was questionable whether the patient would really benefit from a pacemaker versus pursuing outpatient EP studies. Please refer to Dr. Stewart's notes, in particular about his consultation. Ultimately the decision was made that the patient should continue to pursue outpatient EP studies and that there would not be an emergent or urgent need to pursue pacemaker placement at this time. In terms of the suppressed cortisol level, we did do an ACTH stim test on the patient on 09/26/2018. He did have an appropriate response to the ACTH stim test. His pre stim cortisol level was 3.22, post test was 17.72 indicating an approximately six-fold rise in his cortisol level which would be an appropriate response to the stim test indicating adrenal sufficiency as opposed to insufficiency. In terms of his hypotension and moderately suppressed cortisol level at admission, the test today does not support that the patient actually had overt adrenal insufficiency at the time of admission. His hypotension is likely more related to polypharmacy and hypoglycemia. As the patient became more awake, we did correct his blood sugar. The patient was awake and eating. He had no more episodes of hypoglycemia. We also withheld his pain medications. 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 These medications were all held as well. The patient became much more alert and his blood pressure normalized. I did have an extensive discussion with the patient, his , and his son at the bedside regarding polypharmacy and also the administration of Glimepiride. The patient states he had not eaten in 24 hours and was still receiving his oral antihyperglycemic medications while at [facility]. I cautioned the patient very strongly that if he was not eating full meals, he should not be taking oral anti- diabetic medications. Also, in terms of pain medication, I also stressed to the patient that although pain can be severe, if the patient is not up and moving and ambulatory and eating, taking around the clock pain medication, especially long- acting medication, will suppress his respiratory drive, make him lethargic, and make him very altered. I think his metabolic encephalopathy that he presented with was more likely due to polypharmacy and less likely due to his cardiac anomalies and that he should advocate for himself if he knows he is not eating full meals, that he should have an open [facility]. His son and his , who were at the bedside, were in agreement with his oral medication management. The patient's INR was corrected after holding his Coumadin and receiving a dose of vitamin K. INR was 5.12 at admission, came down to 4.82, and on the day of discharge is 1.64. His Coumadin should be restarted this evening with a goal INR of 2 to 3. The patient was cleared for discharge on 09/26/2018. Our discharge plan is for the patient to pursue outpatient EP study and follow-up with Dr. Mittal for continued pacemaker evaluation also as an outpatient. At this time, the patient will be transferred back to [facility]. DISCHARGE DIAGNOSES: 1. Acute metabolic encephalopathy secondary to hypoglycemia and polypharmacy. 2. Bradycardia and sinus node dysfunction. 3. History of chronic pain. 4. Obstructive sleep apnea. 5. Morbid obesity. 6. Gait dysfunction. 7. History of diastolic congestive heart failure. 8. History of atrial fibrillation. 9. Supratherapeutic INR. 10. Hypothyroidism. 11. Hyperlipidemia. DISCHARGE MEDICATIONS: 1. Morphine 3 mg p.o. q.12 hours as needed for pain. 2. Nitroglycerin 0.4 mg sublingual q.5 minutes as needed for chest pain. 3. Ketoralac ophthalmic one drop both eyes 3 times a day. 4. Gabapentin 400 mg four tabs at bedtime. 5. Imodium 2 mg p.o. q.4 hours needed. 6. Glimepiride 4 mg p.o. in the morning. 7. Coumadin 4 mg p.o. daily. 8. Probiotic two tablets daily. 9. Crestor 5 mg in the evening. 10. Cymbalta 30 mg daily. 11. Baclofen 40 mg four times a day. 12. Plavix 75 mg in the morning. 13. Gabapentin 400 mg one tablet 3 times a day. 14. Fluticasone nasal spray one spray both nares daily. 15. Levothyroxine sodium 100 mcg p.o. daily in the morning. REVIEW OF SYSTEMS THE DAY OF DISCHARGE: The patient denies any fever, fatigue, or chills. No headache, no dizziness. No shortness of breath, no chest pain. No nausea, no vomiting, no abdominal pain, no urinary complaints. He does have baseline arthralgias and myalgias, primary of the left upper extremity, down his spine and his legs; this is his baseline. No further constitutional complaints. PHYSICAL EXAMINATION: General: The patient is awake, alert and in no acute distress. Vital signs: Blood pressure 121/63, heart rate 45, respiratory rate 19, O2 saturation 91 percent on room air with a temperature of 97.0. HEENT: The patient is atraumatic, normocephalic. PERRLA. Nonicteric sclerae. Oral mucosa is moist. Tongue is midline. Neck: Supple, nontender. No JVD noted. No carotid bruit auscultated. Cardiovascular: S1, S2 present. Rate is bradycardia. Rhythm is regular. No murmurs, gallops, or rubs noted. Lungs: Clear bilaterally at the apices, diminished at the bases. No adventitious breath sounds noted. Abdomen: Soft, nontender, nondistended, obese. Positive bowel sounds noted all four quadrants. : Deferred. Musculoskeletal: There is no clubbing and no cyanosis. He does have some generalized edema. Neurologic : He does have weakness in the left upper extremity and the left lower extremity. He did not ambulate at baseline. He is wheelchair and bed bound at baseline. Psychiatric: He is calm, cooperative, and appropriate. LABORATORY DATA: WBC 6.8, RBC 4.12, hemoglobin 11.5, hematocrit 38, platelets 180; sodium 138, potassium 4.9, chloride 103, CO2 28, BUN 18, creatinine 1.01, GFR 72.2, glucose 160, calcium 8.9, magnesium 1.9. IMAGING STUDIES: 1. CT of the brain dated 09/25/2018 shows no acute intracranial abnormalities, mild chronic small vessel ischemic disease. 2. Transthoracic echocardiogram dated 09/25/2018: Echo shows an ejection fraction is 50 to 55 percent, up from 40 to 45 percent from the last study; left ventricle has a mild relative anteroseptal hypokinesis and dyssynchrony consistent with a right bundle branch block; cavity size is mildly dilated; wall thickness is moderately increased; systolic function is at the lower limits of normal; systolic function is slightly improved from the study of 08/27. 3. EKG dated 09/25/2018 shows sinus beverly with a right bundle branch block, there are some anterolateral T-wave inversions, otherwise no significant changes from previous record. DISPOSITION: The patient will be discharged to [facility] via ambulance transport. CONDITION ON DISCHARGE: Stable. DIET: Heart-healthy as tolerated. ACTIVITY: Progress activity as tolerated. FOLLOW-UP: The patient should follow-up with his primary care provider at [facility] and Dr. Mittal from Cardiology at [facility] in the next to two weeks. Referral has also been made for EPS study at [facility]. The patient's does have this information. Initially, the patient had an appointment for that today. This will be rescheduled. His is aware of the rescheduling of his appointment and will be handling this. All questions were answered. The patient and his family state their understanding of the discharge instructions and follow-ups. TIME SPENT: Forty-five minutes on discharge planning, medications, and follow- ups. BECCA BENITEZ NP [id number]/[facility] #: [id number] YANET
[2018-09-26 15:56] VITALS: BP 103/52
== END 2018-09-26 16:05 | DRG 637 ==
LOC: ED 21:03 → ICU 09-25 02:23
PROVIDERS: ADMIT Internal Medicine; ATTEND Internal Medicine
DX: E11.649 Type 2 diabetes mellitus with hypoglycemia without coma (principal); G93.41 Metabolic encephalopathy; I50.30 Unspecified diastolic (congestive) heart failure; Z68.43 Body mass index [BMI] 50.0-59.9, adult; I45.2 Bifascicular block; G82.20 Paraplegia, unspecified; I95.9 Hypotension, unspecified; E11.42 Type 2 diabetes mellitus with diabetic polyneuropathy; I11.0 Hypertensive heart disease with heart failure; I48.91 Unspecified atrial fibrillation; I49.5 Sick sinus syndrome; E66.01 Morbid (severe) obesity due to excess calories; I45.10 Unspecified right bundle-branch block; G89.29 Other chronic pain; R74.8 Abnormal levels of other serum enzymes; G47.33 Obstructive sleep apnea (adult) (pediatric); T40.2X5A Adverse effect of other opioids, initial encounter; R26.9 Unspecified abnormalities of gait and mobility; E03.9 Hypothyroidism, unspecified; E78.5 Hyperlipidemia, unspecified; I44.0 Atrioventricular block, first degree; I25.10 Atherosclerotic heart disease of native coronary artery without angina pectoris; F32.9 Major depressive disorder, single episode, unspecified; R19.7 Diarrhea, unspecified; Y92.129 Unspecified place in nursing home as the place of occurrence of the external cause; Z99.89 Dependence on other enabling machines and devices; Z99.3 Dependence on wheelchair; Z79.01 Long term (current) use of anticoagulants; Z79.84 Long term (current) use of oral hypoglycemic drugs; Z79.891 Long term (current) use of opiate analgesic; Z79.899 Other long term (current) drug therapy; Z88.5 Allergy status to narcotic agent; Z88.8 Allergy status to other drugs, medicaments and biological substances; Z95.1 Presence of aortocoronary bypass graft; Z86.73 Personal history of transient ischemic attack (TIA), and cerebral infarction without residual deficits; Z86.711 Personal history of pulmonary embolism
CPT/HCPCS: 36415; 70450; 71045; 80048; 80053; 81003; 81015; 82533; 83735; 84443; 84484; 85025; 85610; 85730; 87086; 93005; 93306; 94660; 99285; A9270-GY; C8929; J0461; J0696; J0834; J2920; J3430

== ENCOUNTER 2020-09-10 09:29 | Inpatient (IN) ==
[2020-09-10] MEDS ORDERED: Lactated Ringers 1000 ml BAG 1,000 ML IV ONE (09:49)
[2020-09-10 10:11] LABS: PCO2 Arterial 40 mmHg (35-45); PO2 Arterial 77 mmHg (80-100)
[2020-09-10 10:14] LABS: ABS Eosinophils 0.5 10^3/ul (0-0.6); ABS Lymphocytes 0.9 10^3/ul (1.0-4.8); ABS Monocytes 0.4 10^3/ul (0-0.8); ABS Neutrophils 4.2 10^3/ul (1.5-7.7); Eosinophil % 7.7 %; Hematocrit 37 % (42-52); Hemoglobin 12.2 g/dL (14.0-18.0); Lymphocyte % 14.5 %; Mean Corpuscular HGB Conc 33 g/dL (31-36); Mean Corpuscular Hemoglobin 29 pg (27-31); Mean Corpuscular Volume 87 fL (80-94); Nucleated Red Blood Cells % 0.1; Platelet Count 420 10^3/uL (150-450); Red Cell Distribution Width 17 % (10-15); White Blood Count 5.9 10^3/uL (3.5-10.8)
[2020-09-10 10:31] LABS: Activated Partial Thrombo Time 40.6 seconds (26.0-38.0); Albumin 2.9 g/dL (3.2-5.2); Albumin/Globulin Ratio 0.9 (1-3); C Reactive Protein 27.96 mg/L (<8.01); Calcium 8.4 mg/dL (8.6-10.3); EGFR African American 195.6 (>60); EGFR Non-African American 161.7 (>60); Globulin 3.2 g/dL (2-4); INR 2.39 (0.86-1.15); Potassium 3.6 mmol/L (3.5-5.0); Total Bilirubin 0.5 mg/dL (0.2-1.0); Total Protein 6.1 g/dL (6.4-8.9)
[2020-09-10 11:29] LABS: Urine Appearance Turbid; Urine Bilirubin Negative (Negative); Urine Blood 2+ (Negative); Urine Color Amber; Urine Glucose Negative (Negative); Urine Ketones Trace (Negative); Urine Nitrite Negative (Negative); Urine Protein 2+(100 mg/dL) (Negative); Urine Specific Gravity 1.011 (1.002-1.030); Urine Urobilinogen Negative (Negative)
[2020-09-10 11:37] LABS: Urine Bacteria Absent (Absent); Urine Red Blood Cell 3+(>10/hpf) (Absent); Urine White Blood Cell 3+(>20/hpf) (Absent)
[2020-09-10] MEDS ORDERED: cefTRIAXone 2 GM ADDV.VIAL 2 GM in NS 0.9% 100 ml BAG 100 ML IVPB ONE (12:05)
[2020-09-10] MEDS ORDERED: Naloxone 0.4 mg VIAL 0.4 mg/ml 1 ml VIAL IV PUSH ONE (12:18)
[2020-09-10] MEDS ORDERED: Morphine 4 MG/ML VIAL (1 ml) IV ONE (15:27)
[2020-09-10 17:22] LABS: Magnesium 1.9 mg/dL (1.9-2.7)
[2020-09-10] MEDS: Meropenem 500MG PREMIX(*) 500 MG/50 ML BAG IV SCH (19:05)
[2020-09-10 20:32] LABS: Calcium 8.4 mg/dL (8.6-10.3); EGFR African American 175.2 (>60); EGFR Non-African American 144.8 (>60); Potassium 3.8 mmol/L (3.5-5.0)
[2020-09-10] MEDS: Polyethylene Glycol 3350 17 GM PACKET PO SCH (20:40)
[2020-09-10] MEDS: Morphine ER 15 mg TAB ** extended release PO SCH (21:43)
[2020-09-10] MEDS: Neomycin/Polymy/Dex OPHTH.OIN 3.5 GM BOTH EYES SCH (23:29)
[2020-09-11] MEDS: Meropenem 500MG PREMIX(*) 500 MG/50 ML BAG IV SCH ×3 (02:30→17:08)
[2020-09-11 06:48] LABS: ABS Basophils 0.1 10^3/ul (0-0.2); ABS Eosinophils 0.5 10^3/ul (0-0.6); ABS Lymphocytes 1.1 10^3/ul (1.0-4.8); ABS Monocytes 0.5 10^3/ul (0-0.8); ABS Neutrophils 5.2 10^3/ul (1.5-7.7); Eosinophil % 7.2 %; Hematocrit 38 % (42-52); Hemoglobin 12.4 g/dL (14.0-18.0); Lymphocyte % 14.9 %; Mean Corpuscular HGB Conc 33 g/dL (31-36); Mean Corpuscular Hemoglobin 29 pg (27-31); Mean Corpuscular Volume 88 fL (80-94); Mean Platelet Volume 7.4 fL (7.4-10.4); Nucleated Red Blood Cells % 0.2; Platelet Count 348 10^3/uL (150-450); Red Blood Count 4.32 10^6 /uL (4.18-5.48); Red Cell Distribution Width 18 % (10-15); White Blood Count 7.4 10^3/uL (3.5-10.8)
[2020-09-11 06:50] LABS: INR 2.57 (0.86-1.15)
[2020-09-11] MEDS: DULoxetine DR 30 mg CAP PO SCH (09:52)
[2020-09-11] MEDS: Morphine ER 15 mg TAB ** extended release PO SCH ×2 (09:53→21:30)
[2020-09-11] MEDS: Polyethylene Glycol 3350 17 GM PACKET PO SCH (09:56)
[2020-09-11] MEDS ORDERED: Dextrose 50% Syringe 50 ml 25 GM/50 ML SYRINGE IV PUSH PRN (12:01)
[2020-09-11] MEDS: Neomycin/Polymy/Dex OPHTH.OIN 3.5 GM BOTH EYES SCH (21:31)
[2020-09-12] MEDS: Meropenem 500MG PREMIX(*) 500 MG/50 ML BAG IV SCH ×2 (02:49→10:37)
[2020-09-12] MEDS ORDERED: Ondansetron 4 mg VIAL 2 MG/ML 2 ml VIAL IV ONE (06:32)
[2020-09-12] MEDS ORDERED: Prochlorperazine 5 mg/ml 2 ml VIAL (10 mg) IV ONE (06:34)
[2020-09-12 06:53] LABS: INR 3.35 (0.86-1.15)
[2020-09-12] MEDS: Morphine ER 15 mg TAB ** extended release PO SCH ×2 (07:34→21:34)
[2020-09-12] MEDS: Polyethylene Glycol 3350 17 GM PACKET PO SCH (07:35)
[2020-09-12] MEDS: DULoxetine DR 30 mg CAP PO SCH (07:35)
[2020-09-12] MEDS ORDERED: Naloxone 0.4 mg VIAL 0.4 mg/ml 1 ml VIAL IV PUSH STA (08:21)
[2020-09-12] MEDS ORDERED: NS 0.9% 1000 ml BAG 1,000 ML IV ONE (08:22)
[2020-09-12] MEDS ORDERED: Naloxone 0.4 mg VIAL 0.4 mg/ml 1 ml VIAL ONE (08:23)
[2020-09-12] MEDS ORDERED: Morphine 2 MG/ML SYRINGE IV PRN (09:23)
[2020-09-12] MEDS ORDERED: Iodixanol (CONTRAST) 320 MG/ML 100 ML SDV IV SCH (12:17)
[2020-09-12] MEDS ORDERED: Warfarin - No Order Today **NOTE FOLLOW UP ONE (17:00)
[2020-09-12] MEDS: Warfarin per PHARMACY **NOTE FOLLOW UP SCH (17:18)
[2020-09-12] MEDS: Warfarin DAILY REMINDER **NOTE FOLLOW UP SCH (17:18)
[2020-09-12] MEDS ORDERED: Iodixanol (CONTRAST) 320 MG/ML 100 ML SDV IV ONE (18:29)
[2020-09-12] MEDS: Neomycin/Polymy/Dex OPHTH.OIN 3.5 GM BOTH EYES SCH (21:35)
[2020-09-13 05:52] LABS: ABS Basophils 0.1 10^3/ul (0-0.2); ABS Eosinophils 0.4 10^3/ul (0-0.6); ABS Lymphocytes 1.1 10^3/ul (1.0-4.8); ABS Monocytes 0.5 10^3/ul (0-0.8); ABS Neutrophils 3.6 10^3/ul (1.5-7.7); Eosinophil % 7.9 %; Hematocrit 36 % (42-52); Hemoglobin 11.6 g/dL (14.0-18.0); Lymphocyte % 19.2 %; Mean Corpuscular HGB Conc 33 g/dL (31-36); Mean Corpuscular Hemoglobin 28 pg (27-31); Mean Corpuscular Volume 87 fL (80-94); Mean Platelet Volume 7.1 fL (7.4-10.4); Nucleated Red Blood Cells % 0.2; Platelet Count 382 10^3/uL (150-450); Red Cell Distribution Width 17 % (10-15); White Blood Count 5.7 10^3/uL (3.5-10.8)
[2020-09-13 05:57] LABS: INR 4.12 (0.86-1.15)
[2020-09-13] MEDS: Morphine ER 15 mg TAB ** extended release PO SCH ×2 (07:29→21:50)
[2020-09-13] MEDS: DULoxetine DR 30 mg CAP PO SCH (07:29)
[2020-09-13] MEDS: Polyethylene Glycol 3350 17 GM PACKET PO SCH (08:49)
[2020-09-13] MEDS ORDERED: Iodixanol (CONTRAST) 320 MG/ML 100 ML SDV IV ONE (11:22)
[2020-09-13] MEDS: Warfarin DAILY REMINDER **NOTE FOLLOW UP SCH (16:29)
[2020-09-13] MEDS: Warfarin per PHARMACY **NOTE FOLLOW UP SCH (16:29)
[2020-09-13] MEDS ORDERED: Warfarin - No Order Today **NOTE FOLLOW UP ONE (17:00)
[2020-09-13] MEDS: Neomycin/Polymy/Dex OPHTH.OIN 3.5 GM BOTH EYES SCH (21:45)
[2020-09-14 06:41] LABS: INR 3.44 (0.86-1.15)
[2020-09-14 06:52] LABS: EGFR Non-African American 154.5 (>60); Potassium 3.2 mmol/L (3.5-5.0)
[2020-09-14 07:52] LABS: Albumin 2.7 g/dL (3.2-5.2)
[2020-09-14] MEDS ORDERED: Warfarin - No Order Today **NOTE FOLLOW UP ONE (08:00)
[2020-09-14] MEDS: Morphine ER 15 mg TAB ** extended release PO SCH ×2 (09:45→22:35)
[2020-09-14] MEDS: DULoxetine DR 30 mg CAP PO SCH (09:45)
[2020-09-14] MEDS: Polyethylene Glycol 3350 17 GM PACKET PO SCH (10:36)
[2020-09-14] MEDS: Warfarin DAILY REMINDER **NOTE FOLLOW UP SCH (17:18)
[2020-09-14] MEDS: Warfarin per PHARMACY **NOTE FOLLOW UP SCH (17:18)
[2020-09-14] MEDS: Neomycin/Polymy/Dex OPHTH.OIN 3.5 GM BOTH EYES SCH (22:34)
[2020-09-14] MEDS: Potassium Chlor 20 meq TAB.ER PO SCH (22:41)
[2020-09-15 05:28] LABS: INR 2.95 (0.86-1.15)
[2020-09-15 05:33] LABS: Calcium 8.2 mg/dL (8.6-10.3); EGFR Non-African American 154.5 (>60); Potassium 3.4 mmol/L (3.5-5.0)
[2020-09-15 08:11] VITALS: BP 96/63
[2020-09-15] MEDS: DULoxetine DR 30 mg CAP PO SCH (08:51)
[2020-09-15] MEDS: Potassium Chlor 20 meq TAB.ER PO SCH (08:51)
[2020-09-15] MEDS: Polyethylene Glycol 3350 17 GM PACKET PO SCH (08:53)
[2020-09-15] MEDS ORDERED: Morphine ORAL.SOLN 10 mg 2 mg/ml UDC 5 ml (10 mg) PO PRN (10:39)
== END 2020-09-15 11:35 | DRG 947 ==
LOC: ED 09:29 → MED 16:33
PROVIDERS: ADMIT Internal Medicine; ATTEND Internal Medicine